=== PATIENT | male | born 1985 | race Caucasian/White ===

== ENCOUNTER 2022-02-02 15:49 | Emergency (ER) | payer MEDICAID, SELFPAY ==
--- NOTE | 2022-02-02 16:10 | EXP.UTC ---
Discharge Plan Disposition Patient Disposition: Home, Self-Care Condition: Good Prescriptions Prescriptions: New ciprofloxacin HCl [Cipro] 500 mg tablet 500 mg PO BID 10 Days Qty: 20 0RF mupirocin 2 % ointment 1 applic topical TID 7 Days Qty: 1 0RF cephalexin 500 mg capsule 500 mg PO QID Qty: 40 0RF Referrals Follow up/Referrals: Provider,Referral, MD [Primary Care Provider] - See instructions Victoria Hutton DPM [Staff Physician] - See instructions Activity Restrictions/Add. Instructions Additional Instructions/Restrictions: Rest the extremity, Elevate the extremity as tolerated while you are resting. Take ibuprofen for pain. I sent in a prescription to your pharmacy. Follow up with Dr. Hutton (podiatry). I put in a referral but you need to call her office and schedule an appointment. Follow up with your regular doctor. GO TO THE ER FOR ANY WORSENING SYMPTOMS Clinical Impressions Clinical Impression: Crush injury of right foot, Injury of right great toe, Diabetes Instructions Patient Instructions: DI for Crush Injury Discharge ED Provider: Good Pena [facility] General Stated complaint: AO 02/02 @[employer] ran over R foot Time Seen by Provider: 02/02/22 16:10 History of Present Illness Provider Complaint: He states that earlier today he was working on a fork lift at home when it rolled and rolled over the tip of his right great toe. He states that this caused his toe nail to be ripped off. He is a diabetic. Related Data Previous Rx's Medication Instructions Recorded cephalexin 500 mg capsule 500 mg PO QID #40 caps 02/02/22 ciprofloxacin HCl 500 mg tablet 500 mg PO BID 10 days #20 tabs 02/02/22 (Cipro) mupirocin 2 % topical ointment 1 applic topical TID 7 days #1 g 02/02/22 Allergies Allergy/AdvReac Type Severity Reaction Status Date / Time INGREDIENT: NO KNOWN - NO Allergy Unknown Uncoded 04/30/17 15:25 KNOWN DRUG ALLERGY [facility] Social History Smoking Status: Never smoker alcohol intake: never current occupational status: unemployed Travel in the last 8 weeks: None ROS Obtained: Yes All systems reviewed & no additional complaints except as documented Constitutional Constitutional: Reports system reviewed and no additional complaints, except as documented, Denies chills and Denies fever(s) Eyes Eyes: Denies eye discharge ENT Ears, Nose, Mouth, and Throat: Denies dysphagia, Denies sore throat and Denies throat swelling Cardiovascular Cardiovascular: Denies chest pain and Denies dyspnea Respiratory Respiratory: Denies chest congestion, Denies cough and Denies dyspnea Gastrointestinal Gastrointestingal: Denies abdominal pain, constipation, diarrhea, dysphagia, nausea or vomiting Musculoskeletal Musculoskeletal: Reports as per HPI Integumentary/Breasts Skin/Breast: Reports as per HPI Neurologic Neurologic: Denies paresthesias Allergic/Immunologic Allergic/Immunologic: Denies throat swelling Physical Exam General General appearance: alert and in no apparent distress Head Head exam: atraumatic, normocephalic and normal inspection Eye Eye exam: Present normal appearance, PERRL and EOMI ENT ENT exam: Present normal exam, normal oropharynx, mucous membranes moist, TM's normal bilaterally and normal external ear exam Neck Neck exam: Present normal inspection, full ROM and trachea midline; Absent meningismus or lymphadenopathy Chest Chest inspection: Present normal inspection and symmetric chest wall rise; Absent tenderness Respiratory Respiratory exam: Present normal lung sounds bilaterally; Absent respiratory distress Cardiovascular Cardiovascular exam: Present regular rate and normal rhythm; Absent JVD Abdominal Exam Abdominal exam: Present soft and normal bowel sounds; Absent distention, tenderness or guarding Extremities Exam Extremities exam: Present normal inspection, full ROM and norm
--- NOTE | 2022-02-02 16:14 | XR_ITS ---
PROCEDURE INFORMATION: Exam: XR Right Foot Exam date and time: 02/02/2022 4:16 PM Age: 36 years old Clinical indication: Injury or trauma; Other: Fork lift ran over foot; Work related; Blunt trauma; Right; Injury date: 02/02/22 TECHNIQUE: Imaging protocol: Radiologic exam of the Right foot. Views: 3 or more views. COMPARISON: No relevant prior studies available. FINDINGS: Bones/joints: Calcaneus enthesophytes. No acute fracture or dislocation. Soft tissues: Normal. IMPRESSION: No acute fracture or dislocation.
[2022-02-02 16:20] VITALS: BP 153/91; PULSE 90; RESP 18; TEMP 37; O2SAT 96; BMI 32.5
[2022-02-02 18:44] VITALS: BP 153/91; PULSE 90; RESP 18; TEMP 37
== END 2022-02-02 18:44 | disposition home or self-care (01) ==
PROVIDERS: Emergency Provider Nurse Practitioner Family
DX: S97.111A Crushing injury of right great toe, initial encounter (principal); S97.81XA Crushing injury of right foot, initial encounter; V83.7XXA Person on outside of special industrial vehicle injured in nontraffic accident, initial encounter; E11.9 Type 2 diabetes mellitus without complications
CPT/HCPCS: 73630; 99212; G0463

== ENCOUNTER 2023-12-04 21:36 | Emergency (ER) | payer MEDICAID, SELFPAY ==
[2023-12-04 21:38] VITALS: BP 144/74; PULSE 87; RESP 20; TEMP 36.6; O2SAT 100; BMI 27.3
--- NOTE | 2023-12-04 21:42 | ED_ITS ---
<Statement entered by Noris Sanches MD - 12/04/23 23:46> I was consulted by the SAHARA, and we discussed the complexity of problems being addressed. I approved the treatment and management plan for this patient's care in the emergency department, thus performing a substantial portion of the medical decision making. I evaluated the patient and reviewed labs. He does have significant prerenal changes but received aggressive IV fluid resuscitation in the ER. He has a mildly elevated CK, it is elevated but not consistent with rhabdomyolysis. His lactic was also elevated consistent with all the findings of dehydration as previously discussed. He continues to be stable and tolerated Dalvance well. Bactrim has been prescribed for outpatient management as well as follow-up with podiatry for his injuries on his feet given he is a diabetic which increases risk of worsening infection and injury. After evaluation and intervention in the ER, he is appropriate for discharge and was discharged in stable condition. Noris Sanches MD Discharge Plan Disposition Patient Disposition: Home, Self-Care Condition: Good Prescriptions Prescriptions: New sulfamethoxazole-trimethoprim [Bactrim DS] 800-160 mg tablet 1 tab PO DAILY 5 Days Qty: 5 0RF Discontinued cephalexin 500 mg capsule 500 mg PO QID Qty: 40 0RF No Action ciprofloxacin HCl [Cipro] 500 mg tablet 500 mg PO BID 10 Days Qty: 20 0RF mupirocin 2 % ointment 1 applic topical TID 7 Days Qty: 1 0RF Referrals Follow up/Referrals: Provider,Referral, [Primary Care Provider] - See instructions Victoria Hutton DPM [Staff Physician] - See instructions Activity Restrictions/Add. Instructions Additional Instructions/Restrictions: Take the prescribed antibiotics as directed, do not skip doses, do not stop taking them early. Please drink plenty of water in the next few days. Avoid all illicit substances including alcohol and drugs. I have referred you to podiatry to follow your diabetic foot injuries. Please follow-up with your PCP in 48 hours to recheck your labs. Return to ER for any worsening signs or symptoms as needed. Clinical Impressions Clinical Impression: Abrasion, multiple sites, Methamphetamine abuse, Hypokalemia, Acute prerenal azotemia Instructions Patient Instructions: DI for Skin Abscess Print Language Print Language: Gu[place]ian Discharge ED Provider: Noris Sanches General Adult HPI General Chief complaint: Skin/Abscess/Foreign Body Stated complaint: both feet hurt Time Seen by Provider: 12/04/23 21:42 History of Present Illness HPI narrative: Patient presents for evaluation initially of bilateral foot pain. However upon full interview the patient has spent the weekend high on meth nearly naked in [place] including barefoot. He does not recall much of what happened but recalls that his feet were extremely sore today. He denies chest pain fever chills hemoptysis hematochezia melena nausea vomiting diarrhea. He does have capacity for decision-making [place] Coma Score is currently 15 and he is awake alert and oriented to circumstance currently. I did ask the patient if he was here for rehabilitation and he said no Related Data Previous Rx's ?Medication ?Instructions ?Recorded ciprofloxacin HCl 500 mg tablet 500 mg PO BID 10 days #20 tabs 02/02/22 (Cipro) mupirocin 2 % topical ointment 1 applic topical TID 7 days #1 g 02/02/22 sulfamethoxazole 800 1 tab PO DAILY 5 days #5 tabs 12/04/23 mg-trimethoprim 160 mg tablet (Bactrim DS) Allergies Allergy/AdvReac Type Severity Reaction Status Date / Time INGREDIENT: NO KNOWN - NO Allergy Unknown Uncoded 04/30/17 15:25 KNOWN DRUG ALLERGY [facility] Disclaimer: The information contained in this section may have been updated after the patient was seen, as this information can be updated by other users. Social History (Updated 02/04/22 @ 21:40 by Good Pena APRN) Smoking Status: Current every day smoker alcohol intake: never current occupational status: unemployed Travel in the last 8 weeks: None ROS Obtained: Yes Systems reviewed as appropriate & no additional complaints except as documented Physical Exam General General appearance: alert and in no apparent distress Head Head exam: atraumatic and normal inspection Eye Eye exam: Present normal appearance and PERRL ENT ENT exam: Present normal exam, normal oropharynx and mucous membranes moist Neck Neck exam: Present normal inspection, full ROM and trachea midline Chest Chest inspection: Present normal inspection and symmetric chest wall rise Respiratory Respiratory exam: Present normal lung sounds bilaterally Cardiovascular Cardiovascular exam: Present regular rate and normal rhythm Abdominal Exam Abdominal exam: Present soft and normal bowel sounds; Absent tenderness, guarding or rebound Extremities Exam Extremities exam: Present normal inspection and full ROM Neurological Exam Neurological exam: Present alert, oriented X3 and CN II-XII intact Psychiatric Psychiatric exam: Present normal affect and normal mood Skin Skin exam: Present warm, dry and normal color; Absent intact (Patient has too numerous to count abrasions scratches and excoriations over his entire torso and extremities. He additionally has interdigital lacerations of his toes but no overt evidence of cellulitis currently) Medical Decision Making Medical Records Medical records reviewed: Yes I reviewed the patient's medical records. Josh Inquiry Pt receiving controlled substance: No Vital Signs: 12/04/23 21:38 12/04/23 22:00 12/04/23 22:30 Temperature 97.9 F Temperature Source Oral Pulse Rate 80 80 Pulse Rate [Right Brachial] 87 Respiratory Rate 20 15 19 Blood Pressure 112/63 103/55 L Blood Pressure [Right Arm] 144/74 H Blood Pressure Mean 79 71 Blood Pressure Mean [Right Arm] 97 Blood Pressure Source [Right Arm] Automatic Cuff Blood Pressure Position [Right Arm] Supine 02 Sat by Pulse Oximetry 100 98 99 Oxygen Delivery Method Room Air Room Air 12/04/23 23:00 12/04/23 23:30 Temperature Temperature Source Pulse Rate 78 78 Pulse Rate [Right Brachial] Respiratory Rate 20 19 Blood Pressure 110/64 105/63 L Blood Pressure [Right Arm] Blood Pressure Mean 78 76 Blood Pressure Mean [Right Arm] Blood Pressure Source [Right Arm] Blood Pressure Position [Right Arm] 02 Sat by Pulse Oximetry 99 98 Oxygen Delivery Method Room Air Room Air Lab Data Lab results reviewed: Yes I reviewed the patient's lab results. Lab Results 12/04/23 21:54: WBC 10.2, RBC 4.42 L, Hgb 14.7, Hct 41.5 L, MCV 93.9, MCH 33.1 H , MCHC 35.3, RDW 13.3, Plt Count 233, MPV 7.9, Neut % (Auto) 65.1, Lymph % (Auto) 21.7, [place] % (Auto) 7.5, Eos % (Auto) 4.8, Baso % (Auto) 1.0, Neut # (Auto) 6.7, Lymph # (Auto) 2.2, [place] # (Auto) 0.8, Eos # (Auto) 0.5 H, Baso # (Auto) 0.1, Sodium 140, Potassium 3.1 L, Chloride 102, Carbon Dioxide 31 H, Anion Gap 10.1, BUN 42 H, Creatinine 0.90, Estimated Creat Clear 144, Estimated GFR 94, Est GFR ( Amer) 114, Glucose 179 H, Calcium 9.5, Magnesium 2.2, Total Bilirubin 0.4, AST 98 H, ALT 93 H, Alkaline Phosphatase 114, Total Creatine Kinase 1492 H*, Total Protein 7.0, Albumin 4.1, Globulin 2.9, Albumin/Globulin Ratio 1.4 12/04/23 21:58: VBG pH 7.40, VBG pCO2 42.9, VBG pO2 53.7 H, VBG HCO3 26.2, VBG Total CO2 27.5 H, VBG O2 Saturation 87.2 H, VBG Base Excess 1.5, VBG Lactic Acid 3.2 H 12/04/23 22:36: Urine Color Yellow, Urine Appearance Clear, Urine pH 6.0, Ur Specific [place] 1.015, Urine Protein Negative, Urine Glucose (UA) 1+, Urine Ketones Negative, Urine Blood Negative, Urine Nitrate Negative, Urine Bilirubin Negative, Urine Urobilinogen 0.2, Ur Leukocyte Esterase Negative, Urine RBC None, Urine WBC Occasional, Ur Squamous Epith Cells 3-5, Urine Bacteria None, Hyaline Casts Occasional, Urine Opiates Screen Negative, Urine Methadone Screen Negative, Ur Barbituates Screen Negative, Ur Phencyclidine Scrn Negative, Ur Amphetamines Screen Positive H, U Benzodiazepines Scrn Negative, Urine Cocaine Screen Negative, U Marijuana (THC) Screen Positive H 12/04/23 21:54 12/04/23 21:54 Orders (Tests/Meds): ED MEDICATIONS Discontinued Medications Generic Name Dose Route Start Last Admin Trade Name Vicky PRN Reason Stop Dose Admin Acetaminophen 1,000 mg 12/04/23 21:49 12/04/23 22:00 Acetaminophen 1,000mg/100ml Vial IV 12/04/23 21:50 1,000 mg ONCE ONE Administration Cephalexin HCl 500 mg 12/04/23 22:09 12/04/23 22:20 Cephalexin 500mg Capsule PO 12/04/23 22:10 500 mg ONCE ONE Administration Diphenhydramine HCl 50 mg 12/04/23 21:49 12/04/23 22:00 Diphenhydramine 50mg/Ml Vial IV 12/04/23 21:50 50 mg ONCE ONE Administration Lactated Ringer's 1,000 mls @ 999 mls/hr 12/04/23 21:49 12/04/23 22:00 Lactated Ringer's 1000 Ml Bag IV 12/04/23 22:49 999 mls/hr .Q1H1M ONE Administration Dalbavancin 1,500 mg/ Dextrose 250 mls @ 500 mls/hr 12/04/23 22:18 12/04/23 22:21 IV 12/04/23 22:19 500 mls/hr ONCE ONE Administration Lactated Ringer's 1,000 mls @ 999 mls/hr 12/04/23 22:27 12/04/23 22:37 Lactated Ringer's 1000 Ml Bag IV 12/04/23 23:27 999 mls/hr .Q1H1M ONE Administration Ketorolac Tromethamine 15 mg 12/04/23 21:49 12/04/23 22:00 Ketorolac 30mg/Ml Vial IV 12/04/23 21:50 15 mg ONCE ONE Administration Potassium Chloride 60 meq 12/04/23 22:36 12/04/23 22:46 Potassium Chloride 20meq Tab PO 12/04/23 22:37 60 meq ONCE ONE Administration Trimethoprim/Sulfamethoxazole 1 each 12/04/23 22:09 12/04/23 23:39 Sulfa/Trimethoprim 1 Tablet PO 12/04/23 22:10 1 each ONCE ONE Administration ORDERS Category Date Time Status CBC w/Auto Diff [Complete Blood Count Auto Diff] Stat Lab 12/04/23 21:54 Completed CK [Creatine Kinase] Stat Lab 12/04/23 21:54 Completed CMP [Comprehensive Metabolic Panel] Stat Lab 12/04/23 21:54 Completed Magnesium Stat Lab 12/04/23 21:54 Completed UA [Urinalysis and Microscopic] Stat Lab 12/04/23 22:36 Completed UDS [Drug Screen,Urine] Stat Lab 12/04/23 22:36 Completed VBG [Venous Blood Gas] Stat RT 12/04/23 21:58 Completed Medical Decision Narrative: In summary patient is a 38-year-old male who presents to the emergency department for evaluation of numerous cutaneous injuries after spending the weekend intoxicated on methamphetamine in the [place] unclothed and barefoot. Patient is hemodynamically stable upon arrival, afebrile. Physical exam is remarkable for body wide abrasions excoriations but most significantly has numerous injuries to the foot that appear to be superficial but has interdigital cuts that are currently wet and dirty. He has no induration he has no lymphangitis he has no lymphedema.. Differential diagnosis includes superficial skin infection versus impending diabetic foot wounds versus contact dermatitis etc. Initial workup will be conducted with hematologic labs urinalysis urine drug screen. Initial interventions include Tylenol Toradol Keflex and Bactrim p.o. Initial workup reviewed by me shows that his white count is normal without a left shift, he has a lactic acidosis of 3.2 but a normal pH, he has azotemia but his creatinine is normal with a GFR greater than 60, he has CK but is experiencing no muscle symptoms and given his methamphetamine use not unlikely. We have treated him with 2 L of crystalloid infusion along with anti- inflammatories and Dalvance as well as Bactrim. Upon repeat evaluation had improvement in his discomfort in his feet. Given this is appropriate for discharge with follow-up with his PCP in 48 hours to recheck his labs and strict return precautions. Critical Care Critical Care Time Critical Care Time: No
--- OUTSIDE RECORDS SUMMARY | 2023-12-04 21:49 | XMS_ITS | Continuity of Care Document ---
Author Organization [facility] Phone Care Team Providers Care Laundry Washer Name Role Phone SHYAM TERRAZAS Primary Attending SHYAM TERRAZAS Unavailable SHYAM TERRAZAS Admitting NO, FAMILY P Primary Care ALLERGIES AND ADVERSE REACTIONS ALLERGIES AND ADVERSE REACTIONS Code System Allergy Substance Adverse Reaction Date Reaction (Severity) Comment Status Reported By Updated By No Known Allergies [id number] on November 15, 2023 6:00:33 PM UTC RESULTS Patient: VICENTA ALONSO Date of : 1985 LABORATORY RESULTS ORDER 200: ACETAMINOPHEN TYL ENOL (LOINC: 3298-7) ORDER DATE: November 15, 2023 6:02:00 PM UTC Specimen Source: Serum/Plasm a Specimen Type: Acellular blo od (serum or plasma) specimen PERFORMING LAB: [address] [id number] Result Comment: Final Result Date: November 15, 2023 6:17:00 PM UTC (TECH: HC) LOINC TEST FLAG RESULT REFERENCE RANGE UPDA BAKARI BY 3298-7 Acetaminophen [Mass/volume] in Serum or Plasma L 0 ug/mL 10 ug/mL - 30 ug/mL November 15, 2023 6:17:00 PM UTC (TECH: HC) ORDER 300: CBC AUTO W DIFF ( LOINC: 86315-0) ORDER DATE: November 15, 2023 6:02:00 PM UTC Specimen Source: Whole Blood Specimen Type: Whole blood s ample PERFORMING LAB: [address] [id number] Result Comment: Final Result Date: November 15, 2023 6:15:00 PM UTC (TECH: MRB) LOINC TEST FLAG RESULT REFERENCE RANGE UPDA BAKARI BY 6690-2 Leukocytes [#/volume] in Blood by Automated count N 6.7 10^3/uL 4.5 10^3/uL - 11.5 10^3/uL November 15, 2023 6:15:00 PM UTC (TECH: [employer]) 789-8 Erythrocytes [#/volume] in Blood by Automated count N 4.29 10^6/uL 4.25 10^6/uL - 5.57 10^6/uL November 15, 2023 6:15:00 PM UTC (TECH: [employer]) 718-7 Hemoglobin [Mass/volume] in Blood L 13.4 g/dL 13.5 g/dL - 17.2 g/dL November 15, 2023 6:15:00 PM UTC (TECH: MRB) 43877-2 Hematocrit [Volume Fraction] of Blood L 39.0 % 42.0 % - 52.0 % November 15, 2023 6:15:00 PM UTC (TECH: MRB) 787-2 Erythrocyte mean corpuscular volume [Entitic volume] by Automated count N 90.9 fl 80 fl - 95 fl November 15, 2023 6:15:00 PM UTC (TECH: [employer]) 70291-1 Erythrocyte mean corpuscular hemoglobin [Entitic mass] in Blood from [place] by Automated count N 31.2 pg 27.0 pg - 34.0 pg November 15, 2023 6:15:00 PM UTC (TECH: MRB) 83500-3 Erythrocyte mean corpuscular hemoglobin concentration [Mass/volume] in Blood from Fetus by Automated count N 34.4 g/dL 32.0 g/dL - 36.0 g/dL November 15, 2023 6:15:00 PM UTC (TECH: MRB) 86674-5 Platelets [#/volume] in Blood N 205 10^3/uL 150 10^3/uL - 450 10^3/uL November 15, 2023 6:15:00 PM UTC (TECH: MRB) 11471-5 Erythrocyte distribution width [Ratio] N 12.5 % 12.3 % - 15.1 % November 15, 2023 6:15:00 PM UTC (TECH: MRB) 02142-1 Platelet mean volume [Entitic volume] in Blood by Automated count N 9.9 fl 7.4 fl - 10.4 fl November 15, 2023 6:15:00 PM UTC (TECH: MRB) 41288-1 Granulocytes/100 leukocytes in Blood by Automated count N 57.7 % 40 % - 75 % November 15, 2023 6:15:00 PM UTC (TECH: MRB) 736-9 Lymphocytes/100 leukocytes in Blood by Automated count N 30.7 % 15 % - 57 % November 15, 2023 6:15:00 PM UTC (TECH: MRB) 5905-5 Monocytes/100 leukocytes in Blood by Automated count N 8.7 % 4.0 % - 12.0 % November 15, 2023 6:15:00 PM UTC (TECH: MRB) 713-8 Eosinophils/100 leukocytes in Blood by Automated count N 2.7 % 0.0 % - 4.0 % November 15, 2023 6:15:00 PM UTC (TECH: MRB) 706-2 Basophils/100 leukocytes in Blood by Automated count N 0.1 % 0.0 % - 1.0 % November 15, 2023 6:15:00 PM UTC (TECH: MRB) 11636-8 Immature granulocytes [#/volume] in Blood N 0.1 % 0.0 % - 0.8 % November 15, 2023 6:15:00 PM UTC (TECH: MRB) 54094-5 Granulocytes [#/volume] in Blood by Automated count N 3.86 10^3/uL November 15, 2023 6:15:00 PM UTC (TECH: MRB) 731-0 Lymphocytes [#/volume] in Blood by Automated count N 2.06 10^3/uL November 15, 2023 6:15:00 PM UTC (TECH: MRB) 742-7 Monocytes [#/volume] in Blood by Automated count N 0.58 10^3/uL November 15, 2023 6:15:00 PM UTC (TECH: MRB) 711-2 Eosinophils [#/volume] in Blood by Automated count N 0.18 10^3/uL November 15, 2023 6:15:00 PM UTC (TECH: MRB) 704-7 Basophils [#/volume] in Blood by Automated count N 0.01 10^3/uL November 15, 2023 6:15:00 PM UTC (TECH: MRB) 05737-9 Immature granulocytes [#/volume] in Blood N 0.01 10^3/uL November 15, 2023 6:15:00 PM UT (TECH: MRB) 21179-9 Manual differential performed [Presence] in Blood N NO November 15, 2023 6:15:00 PM UT (TECH: MRB) ORDER 400: COMP METABOLIC PA HOMERO (LOINC: 13673-6) ORDER DATE: November 15, 2023 6:02:00 PM UT Specimen Source: Serum/Plasm a Specimen Type: Acellular blo od (serum or plasma) specimen PERFORMING LAB: [address] [id number] Result Comment: Final Result Date: November 15, 2023 6:17:00 PM UT (TECH: HC) LOINC TEST FLAG RESULT REFERENCE RANGE UPDA BAKARI BY 2951-2 Sodium [Moles/volume ] in Serum or Plasma N 142 mmol/L 136 mmol/L - 145 mmol/L November 15, 2023 6:17:00 PM UT (TECH: HC) 2823-3 Potassium [Moles/volume] in Serum or Plasma N 3.6 mmol/L 3.5 mmol/L - 5.1 mmol/L November 15, 2023 6:17:00 PM UT (TECH: HC) 2075-0 Chloride [Moles/volu me] in Serum or Plasma N 105 mmol/L 98 mmol/L - 107 mmol/L November 15, 2023 6:17:00 PM UT (TECH: HC) 8-9 Carbon dioxide, tota l [Moles/volume] in Serum or Plasma N 31 mmol/L 21 mmol/L - 32 mmol/L November 15, 2023 6:17:00 PM [place] (TECH: HC) 24407-8 Anion gap 3 in Serum or Plasma N 6.0 November 15, 2023 6:17:00 PM UT (TECH: HC) 2345-7 Glucose [Mass/volume ] in Serum or Plasma H 319 mg/dL 70 mg/dL - 110 mg/dL November 15, 2023 6:17:00 PM UT (TECH: HC) 3094-0 Urea nitrogen [Mass/volume] in Serum or Plasma H 20 mg/dL 7 mg/dL - 18 mg/dL November 15, 2023 6:17:00 PM [place] ([employer]) 2160-0 Creatinine [Mass/volume] in Serum or Plasma N 1.1 mg/dL 0.8 mg/dL - 1.3 mg/dL November 15, 2023 6:17:00 PM [facility] ([employer]: [employer]) 3097-3 Urea nitrogen/Creatinine [Mass Ratio] in Serum or Plasma N 18.2 Ratio 9 Ratio - 21 Ratio November 15, 2023 6:17:00 PM [facility] ([employer]) 28537-4 Glomerular filtratio n rate/1.73 sq M.predicted by Creatinine-based formula (MDRD) N 88 mL/min >60 November 15, 2023 6:17:00 PM [facility] (TECH: [employer]) 2885-2 Protein [Mass/volume ] in Serum or Plasma N 6.9 g/dL 6.4 g/dL - 8.2 g/dL November 15, 2023 6:17:00 PM [facility] ([employer]) 1751-7 Albumin [Mass/volume ] in Serum or Plasma N 3.5 g/dL 3.4 g/dL - 5.0 g/dL November 15, 2023 6:17:00 PM [facility] ([employer]: [employer]) 66891-6 Calcium [Mass/volume ] in Serum or Plasma N 9.5 mg/dL 8.5 mg/dL - 10.1 mg/dL November 15, 2023 6:17:00 PM [facility] ([employer]) 54413-0 Calcium [Mass/volume ] corrected for total protein in Serum or Plasma N 9.9 mg/dL 8.5 mg/dL - 10.1 mg/dL November 15, 2023 6:17:00 PM [facility] ([employer]) 1975-2 Bilirubin.total [Mass/volume] in Serum or Plasma L 0.2 mg/dL 0.4 mg/dL - 1.5 mg/dL November 15, 2023 6:17:00 PM [facility] ([employer]: [employer]) 1920-8 Aspartate aminotransferase [Enzymatic activity/volume] in Serum or Plasma N 19 U/L 15 U/L - 37 U/L November 15, 2023 6:17:00 PM [facility] (TECH: [employer]) 1742-6 Alanine aminotransferase [Enzymatic activity/volume] in Serum or Plasma N 40 U/L 12 U/L - 78 U/L November 15, 2023 6:17:00 PM UTC (TECH: HC) 6768-6 Alkaline phosphatase [Enzymatic activity/volume] in Serum or Plasma N 144 U/L 50 U/L - 170 U/L November 15, 2023 6:17:00 PM UTC (TECH: HC) ORDER 500: ALCOHOL QUANT (LO INC: 5645-7) ORDER DATE: November 15, 2023 6:02:00 PM UTC Specimen Source: Serum/Plasm a Specimen Type: Acellular blo od (serum or plasma) specimen PERFORMING LAB: [address] [id number] Result Comment: Final Result Date: November 15, 2023 6:18:00 PM UTC (TECH: HC) LOINC TEST FLAG RESULT REFERENCE RANGE UPDA BAKARI BY 5645-7 Ethanol [Mass/volume] in Urine N <3 mg/dL 0 mg/dL - 10 mg/dL November 15, 2023 6:18:00 PM UTC (TECH: HC) ORDER 600: URINE DRUG SCREEN - EXL MAX (LOINC: 58069-8) ORDER DATE: November 15, 2023 6:02:00 PM UTC Specimen Source: URINE Specimen Type: Urine specime n PERFORMING LAB: [address] [id number] Result Comment: Final Result Date: November 15, 2023 6:29:00 PM UTC (TECH: MRB) LOINC TEST FLAG [place] [address]-0 Amphetamine+Methamph eta mine [Presence] in Urine POSITIVE NEGATIVE November 15, 2023 6:29:00 PM UTC (TECH: MRB) 3377-9 Barbiturates [Presen ce] in Urine N NEGATIVE NEGATIVE November 15, 2023 6:29:00 PM UTC (TECH: MRB) 07235-4 Benzodiazepine metabolites [Presence] in Urine by Screen method N NEGATIVE NEGATIVE November 15, 2023 6:29:00 PM UTC (TECH: MRB) 3414-0 Buprenorphine [Presence] in Urine N NEGATIVE NEGATIVE November 15, 2023 6:29:00 PM UTC (TECH: MRB) 3397-7 Cocaine [Presence] i n Urine N NEGATIVE NEGATIVE November 15, 2023 6:29:00 PM UTC (TECH: MRB) 79936-3 Methadone [Presence] in Specimen N NEGATIVE NEGATIVE November 15, 2023 6:29:00 PM UTC (TECH: MRB) 21844-2 Opiates [Mass/volume ] in Specimen N NEGATIVE NEGATIVE November 15, 2023 6:29:00 PM UTC (TECH: MRB) 26947-3 oxyCODONE [Presence] in Specimen N NEGATIVE NEGATIVE November 15, 2023 6:29:00 PM UTC (TECH: MRB) 3427-2 Cannabinoids [Presen ce] in Urine POSITIVE NEGATIVE November 15, 2023 6:29:00 PM UTC (TECH: MRB) 01414-1 Phencyclidine [Presence] in Specimen N NEGATIVE NEGATIVE November 14 6:29:00 PM UTC (TECH: MRB) 82043-2 Fentanyl [Presence] in Urine N NEGATIVE NEGATIVE November 15, 2023 6:29:00 PM UTC (TECH: MRB) 80106-3 Tricyclic antidepressants [Presence] in Specimen POSITIVE NEGATIVE November 14 6:29:00 PM UTC (TECH: MRB) 20679-4 Internal control result N PASS PASS November 15, 2023 6:29:00 PM UTC (TECH: MRB) ORDER 700: UA AND MICRO/CULT IF INDICATED (LOINC: 21387-5) ORDER DATE: November 15, 2023 6:02:00 PM UTC Specimen Source: URINE Specimen Type: Urine specime n PERFORMING LAB: [address] [id number] Result Comment: Final Result Date: November 15, 2023 6:23:00 PM UTC (TECH: MRB) LOINC TEST FLAG RESULT REFERENCE RANGE UPDA BAKARI BY 5778-6 Color of Urine N yellow YELLOW November 15, 2023 6:23:00 PM UTC (TECH: MRB) 5767-9 Appearance of Urine N clear CLEAR November 15, 2023 6:23:00 PM UTC (TECH: MRB) 5792-7 Glucose [Mass/volume ] in Urine by Test strip N 1000 NORMAL November 14 6:23:00 PM UTC (TECH: MRB) 13746-3 Bilirubin.total [Mass/volume] in Urine by Automated test strip N NEGATIVE NEGATIVE November 15, 2023 6:23:00 PM UTC (TECH: MRB) 5797-6 Ketones [Mass/volume ] in Urine by Test strip N NEGATIVE NEGATIVE November 14 024 6:23:00 PM UTC (TECH: MRB) 2965-2 Specific gravity of Urine N 1.015 1.005 - 1.035 November 15, 2023 6:23:00 PM UTC (TECH: MRB) 51735-7 Erythrocytes [#/volume] in Urine by Automated test strip N NEGATIVE NEGATIVE November 14 6:23:00 PM UTC (TECH: MRB) 84800-3 pH of Urine by Automated test strip N 6.50 5.0 - 7.5 November 14 6:23:00 PM UTC (TECH: MRB) 76207-8 Protein [Presence] i n Urine by Test strip N 15 (TRACE) mg/dL NEGATIVE November 14 6:23:00 PM UTC (TECH: MRB) 64452-8 Urobilinogen [Mass/volume] in Urine by Automated test strip N NORM NORMAL November 15, 2023 6:23:00 PM UTC (TECH: MRB) 46732-6 Nitrate [Presence] i n Urine N NEGATIVE NEGATIVE November 15, 2023 6:23:00 PM UTC (TECH: MRB) 96647-8 Leukocytes [#/volume ] in Urine by Test strip N NEGATIVE NEGATIVE November 14 6:23:00 PM UTC (TECH: MRB) 93331-5 Microscopic observation [Identifier] in Urine sediment by Light microscopy N NO November 15, 2023 6:23:00 PM UTC (TECH: MRB) LABORATORY NARRATIVE RESULTS Information is not available RADIOLOGY RESULTS Information is not available PATHOLOGY NARRATIVE RESULTS Information is not available MICROBIOLOGY RESULTS No Micro Labs/Results Exist for Patient BLOOD ADMIN RESULTS Information is not available MEDICATIONS HOME MEDICATIONS Status RXNORM NDC Medication Dose Route Frequency Dates Comments Reported By Updated By Active 382184 41775 95586 0 gabapentin 600 mg tablet 1.0 TAB BY MOUTH TID Last Dose: [id number] on November 15, 2023 6:00:49 PM [place] Active 578784 67472 28376 1 amitriptylin e 50 mg tablet 1.0 TAB BY MOUTH DAILY Last Dose: [id number] on November 15, 2023 6:00:49 PM [place] Active 620925 71235 46013 0 metformin 500 mg tablet 1.0 TAB BY MOUTH DAILY Last Dose: [id number] on November 15, 2023 6:00:50 PM [facility] Active 006839 88739 62037 1 metoprolol succinate 50 mg Tablet, Extended Release 24 hr 1.0 TAB BY MOUTH DAILY Last Dose: [id number] on November 15, 2023 6:00:50 PM [facility] Active 105432 40623 79801 5 rosuvastatin 5 mg tablet 1.0 TAB BY MOUTH DAILY Last Dose: [id number] on November 15, 2023 6:00:51 PM [place] Active 296658 83647 14895 0 amlodipine 10 mg tablet 1.0 TAB BY MOUTH DAILY Last Dose: [id number] on November 15, 2023 6:00:51 PM [facility] Active 551645 55543 38043 1 losartan-hyd rochlorothia zide 100-25 mg tablet 1.0 TAB BY MOUTH DAILY Last Dose: [id number] on November 15, 2023 6:00:51 PM [facility] Active 8288849 86330 56543 0 duloxetine 60 mg Capsule, Delayed Release Sprinkle 1.0 CAP BY MOUTH DAILY Last Dose: [id number] on November 15, 2023 6:00:52 PM [facility] Active 653570 49510 66031 0 glyburide 2.5 mg tablet 1.0 TAB BY MOUTH BID Last Dose: [id number] on November 15, 2023 6:00:52 PM [facility] Active 2282782 87786 49447 1 aspirin 81 mg capsule 1.0 CAP BY MOUTH DAILY Last Dose: [id number] on November 15, 2023 6:00:52 PM [facility] Active 023685 27793 82159 0 meloxicam 15 mg tablet 1.0 TAB BY MOUTH DAILY Last Dose: [id number] on November 15, 2023 6:00:52 PM [facility] DISCHARGE MEDICATIONS Status RXNORM NDC Medication Dose Route Frequency Dates Comments Physician Updated By No Discharge Medication Info rmation Available INPATIENT MEDICATIONS Status RXNORM ND Medication Dose Route Frequency Rat e Quantity Dates Comments Physician Updated By No Inpatient Medication Info rmation Available SOCIAL HISTORY SOCIAL HISTORY SNOMED-CT Social History Element Description Effective Dates Offered Cessation Comment UpdatedBy [id number] Smoking Status Unknown If Ever Smoked SOCIAL HISTORY - Gender Sex: Male SOCIAL HISTORY - Status : status i nformation is not available Intention in Next Year: intention information is not available SOCIAL HISTORY - Sexual Behavior Sexual Orientation Gender Identity SNOMED-CT Description SNO MED -CT Description Activity Level No of Partners Partner Type UpdatedBy Information is not available VITAL SIGNS PATIENT VITAL SIGNS This section displays the mo st recent value for each vital sign as of November 15, 2023 8:37:04 PM UTC Loinc Code Vital Sign Activity Date Result Updated By 8310-5 Body temperature November 15, 2023 5:19:00 PM UTC 98.1 [degF] [id number] on November 15, 2023 5:35:07 PM UTC 53021-5 Body weight Measured November 14 5:35:07 PM UTC 79.38 kg (175.0 lb) [id number] on November 15, 2023 5:35:07 PM UTC 8462-4 Diastolic blood pressure November 15, 2023 5:19:00 PM UTC 74.0 mm[Hg] [id number] on November 15, 2023 5:35:07 PM UTC 8867-4 Heart rate November 15, 2023 5:19:00 PM UTC 112 /min [id number] on November 15, 2023 5:35:07 PM UTC 90138-9 Oxygen saturation in Arterial blood by Pulse oximetry November 15, 2023 5:19:00 PM UTC 98.0 % [id number] on November 15, 2023 5:35:07 PM UTC 9279-1 Respiratory rate November 15, 2023 5:19:00 PM UTC 18 /min [id number] on November 15, 2023 5:35:07 PM UTC 8480-6 Systolic blood pressure November 15, 2023 5:19:00 PM UTC 131.0 mm[Hg] [id number] on November 15, 2023 5:35:07 PM UTC PEDIATRIC GROWTH CHART - VITAL SIGNS This section displays Head C ircumference Percentile, Weight for Length Percentile and BMI Percentile Loinc Code Pediatric Measure Age (Months) Result Updat ed By No Pediatric Growth Chart Pe rcentile Information Available. HEALTH CONCERNS Problems Concern Status Health Concern problem infor mation not available. Smoking Status Status Years Used Consumed packs p er day Health Concern smoking histo ry information not available. Family History Concern Status Health Concern family histor y information not available. ENCOUNTERS ENCOUNTER INFORMATION Reason for Visit PSYCH PROBLEM Admission November 15, 2023 5:16:[address] [id number] Discharge November 15, 2023 7:37:00 PM [facility] DISC HARGED TO HOME OR SELF CARE ENCOUNTER DIAGNOSES Notes information is not karrie ilable. Code System Diagnosis Onset Date Diagnosis information is not available. ABSTRACT DIAGNOSES Code System Diagnosis Updated By Abstract Diagnosis informati on is not available. CARE TEAM Care Laundry Washer Role SHYAM TERRAZAS Primary Attending SHYAM TERRAZAS Referring SHYAM TERRAZAS Admitting FAMILY NO Primary Care CARE TEAM CARE nutrition director Role on Team Status Start Date End Date Update d By MK OROZCO Referring normal November 15, 2023 6:38:08 PM [facility] November 15, 2023 7:37:00 PM [facility] [id number] on November 15, 2023 6:38:08 PM [facility] MK OROZCO Attending normal November 15, 2023 6:38:08 PM [facility] November 15, 2023 7:37:00 PM [facility] [id number] on November 15, 2023 6:38:08 PM [facility] MK OROZCO Admitting normal November 15, 2023 6:38:07 PM [place] November 15, 2023 7:37:00 PM [facility] [id number] on November 15, 2023 6:38:08 PM [facility] NO FAMILY PHYSICIAN PCP normal November 15, 2023 5:16:51 PM [place] November 15, 2023 7:37:00 PM [facility] [id number] on November 15, 2023 6:38:08 PM [facility]
--- OUTSIDE RECORDS SUMMARY | 2023-12-04 21:49 | XMS_ITS | Continuity of Care Document ---
Author Organization [facility] Phone Care Team Providers Care Apprenticeship Consultant Name Role Phone SHYAM TERRAZAS Primary Attending SHYAM TERRAZAS Unavailable SHYAM TERRAZAS Admitting NO, FAMILY P Primary Care ALLERGIES AND ADVERSE REACTIONS ALLERGIES AND ADVERSE REACTIONS Code System Allergy Substance Adverse Reaction Date Reaction (Severity) Comment Status Reported By Updated By No Known Allergies [email or web address] on November 15, 2023 6:00:33 PM UTC RESULTS Patient: VICENTA ALONSO Date of : 1985 LABORATORY RESULTS ORDER 200: ACETAMINOPHEN TYL ENOL (LOINC: 3298-7) ORDER DATE: November 15, 2023 6:02:00 PM UTC Specimen Source: Serum/Plasm a Specimen Type: Acellular blo od (serum or plasma) specimen PERFORMING LAB: [address] [id number] Result Comment: Final Result Date: November 15, 2023 6:17:00 PM UTC (TECH: HC) LOINC TEST FLAG RESULT REFERENCE RANGE UPDA BAKARI BY 3298-7 Acetaminophen [Mass/volume] in Serum or Plasma L 0 ug/mL 10 ug/mL - 30 ug/mL November 15, 2023 6:17:00 PM UTC (TECH: HC) ORDER 300: CBC AUTO W DIFF ( LOINC: 71844-0) ORDER DATE: November 15, 2023 6:02:00 PM UTC Specimen Source: Whole Blood Specimen Type: Whole blood s ample PERFORMING LAB: [address] [id number] Result Comment: Final Result Date: November 15, 2023 6:15:00 PM UTC (TECH: MRB) LOINC TEST FLAG RESULT REFERENCE RANGE UPDA BAKARI BY 6690-2 Leukocytes [#/volume] in Blood by Automated count N 6.7 10^3/uL 4.5 10^3/uL - 11.5 10^3/uL November 15, 2023 6:15:00 PM UTC (TECH: [employer]) 789-8 Erythrocytes [#/volume] in Blood by Automated count N 4.29 10^6/uL 4.25 10^6/uL - 5.57 10^6/uL November 15, 2023 6:15:00 PM UTC (TECH: [employer]) 718-7 Hemoglobin [Mass/volume] in Blood L 13.4 g/dL 13.5 g/dL - 17.2 g/dL November 15, 2023 6:15:00 PM UTC (TECH: MRB) 52912-9 Hematocrit [Volume Fraction] of Blood L 39.0 % 42.0 % - 52.0 % November 15, 2023 6:15:00 PM UTC (TECH: MRB) 787-2 Erythrocyte mean corpuscular volume [Entitic volume] by Automated count N 90.9 fl 80 fl - 95 fl November 15, 2023 6:15:00 PM UTC (TECH: [employer]) 75628-1 Erythrocyte mean corpuscular hemoglobin [Entitic mass] in Blood from Fetus by Automated count N 31.2 pg 27.0 pg - 34.0 pg November 15, 2023 6:15:00 PM UTC (TECH: MRB) 61385-7 Erythrocyte mean corpuscular hemoglobin concentration [Mass/volume] in Blood from Fetus by Automated count N 34.4 g/dL 32.0 g/dL - 36.0 g/dL November 15, 2023 6:15:00 PM UTC (TECH: MRB) 72335-2 Platelets [#/volume] in Blood N 205 10^3/uL 150 10^3/uL - 450 10^3/uL November 15, 2023 6:15:00 PM UTC (TECH: MRB) 12170-6 Erythrocyte distribution width [Ratio] N 12.5 % 12.3 % - 15.1 % November 15, 2023 6:15:00 PM UTC (TECH: MRB) 84228-4 Platelet mean volume [Entitic volume] in Blood by Automated count N 9.9 fl 7.4 fl - 10.4 fl November 15, 2023 6:15:00 PM UTC (TECH: MRB) 62312-8 Granulocytes/100 leukocytes in Blood by Automated count [...] 15, 2023 6:15:00 PM UTC (TECH: MRB) 65014-0 Immature granulocytes [#/volume] in Blood N 0.1 % 0.0 % - 0.8 % November 15, 2023 6:15:00 PM UTC (TECH: MRB) 61846-7 Granulocytes [#/volume] in Blood by Automated count [...] 15, 2023 6:15:00 PM UTC (TECH: MRB) 84343-7 Immature granulocytes [#/volume] in Blood N 0.01 10^3/uL November 15, 2023 6:15:00 PM [place] (TECH: MRB) 46429-6 Manual differential performed [Presence] in Blood N NO November 15, 2023 6:15:00 PM UT (TECH: MRB) ORDER 400: COMP METABOLIC PA HOMERO (LOINC: 33393-5) ORDER DATE: November 15, 2023 6:02:00 PM UT Specimen Source: Serum/Plasm a Specimen Type: Acellular blo od (serum or plasma) specimen PERFORMING LAB: [address] [id number] Result Comment: Final Result Date: November 15, [...] 15, 2023 6:17:00 PM UT (TECH: HC) 38414-1 Anion gap 3 in Serum or Plasma N 6.0 November 15, 2023 6:17:00 PM UT (TECH: HC) 2345-7 Glucose [Mass/volume ] in Serum or Plasma H 319 mg/dL 70 mg/dL - 110 mg/dL November 15, 2023 6:17:00 PM UT (TECH: HC) 3094-0 Urea nitrogen [Mass/volume] in Serum or Plasma H 20 mg/dL 7 mg/dL - 18 mg/dL November 15, 2023 6:17:00 PM [place] ([employer]) 2160-0 Creatinine [Mass/volume] in Serum or Plasma N 1.1 mg/dL 0.8 mg/dL - 1.3 mg/dL November 15, 2023 6:17:00 PM [facility] ([email or web address]: [employer]) 3097-3 Urea nitrogen/Creatinine [Mass Ratio] in Serum or Plasma N 18.2 Ratio 9 Ratio - 21 Ratio November 15, 2023 6:17:00 PM [facility] ([employer]) 56067-3 Glomerular filtratio n rate/1.73 sq M.predicted by Creatinine-based formula (MDRD) N 88 mL/min >60 November 15, 2023 6:17:00 PM [facility] (TECH: [employer]) 2885-2 Protein [Mass/volume ] in Serum or Plasma N 6.9 g/dL 6.4 g/dL - 8.2 g/dL November 15, 2023 6:17:00 PM [facility] ([employer]) 1751-7 Albumin [Mass/volume ] in Serum or Plasma N 3.5 g/dL 3.4 g/dL - 5.0 g/dL November 15, 2023 6:17:00 PM [facility] ([email or web address]: [employer]) 03605-3 Calcium [Mass/volume ] in Serum or Plasma N 9.5 mg/dL 8.5 mg/dL - 10.1 mg/dL November 15, 2023 6:17:00 PM [facility] ([employer]) 02390-3 Calcium [Mass/volume ] corrected for total protein in Serum or Plasma N 9.9 mg/dL 8.5 mg/dL - 10.1 mg/dL November 15, 2023 6:17:00 PM [facility] ([employer]) 1975-2 Bilirubin.total [Mass/volume] in Serum or Plasma L 0.2 mg/dL 0.4 mg/dL - 1.5 mg/dL November 15, 2023 6:17:00 PM [facility] ([email or web address]: [employer]) 1920-8 Aspartate aminotransferase [Enzymatic activity/volume] in Serum or Plasma N 19 U/L 15 U/L - 37 U/L November 15, 2023 6:17:00 PM [facility] (TECH: [employer]) 1742-6 Alanine aminotransferase [Enzymatic activity/volume] in Serum [...] od (serum or plasma) specimen PERFORMING LAB: [address] [id number] Result Comment: Final Result Date: November 15, 2023 6:18:00 PM UTC (TECH: HC) LOINC TEST FLAG RESULT REFERENCE RANGE UPDA BAKARI BY 5645-7 Ethanol [Mass/volume] in Urine N <3 mg/dL 0 mg/dL - 10 mg/dL November 15, 2023 6:18:00 PM UTC (TECH: HC) ORDER 600: URINE DRUG SCREEN - EXL MAX (LOINC: 30965-2) ORDER DATE: November 15, 2023 6:02:00 PM UTC Specimen Source: URINE Specimen Type: Urine specime n PERFORMING LAB: [address] [id number] Result Comment: Final Result Date: November 15, 2023 6:29:00 PM UTC (TECH: MRB) LOINC TEST FLAG [place] [address]-2 Amphetamine+Methamph eta mine [Presence] in Urine POSITIVE NEGATIVE November 15, 2023 6:29:00 PM UTC (TECH: MRB) 3377-9 Barbiturates [Presen ce] in Urine N NEGATIVE NEGATIVE November 15, 2023 6:29:00 PM UTC (TECH: MRB) 96589-7 Benzodiazepine metabolites [Presence] in Urine by Screen method N NEGATIVE NEGATIVE November 15, 2023 6:29:00 PM UTC (TECH: MRB) 3414-0 Buprenorphine [Presence] in Urine N NEGATIVE NEGATIVE November 15, 2023 6:29:00 PM UTC (TECH: MRB) 3397-7 Cocaine [Presence] i n Urine N NEGATIVE NEGATIVE November 15, 2023 6:29:00 PM UTC (TECH: MRB) 78123-8 Methadone [Presence] in Specimen N NEGATIVE NEGATIVE November 15, 2023 6:29:00 PM UTC (TECH: MRB) 59203-1 Opiates [Mass/volume ] in Specimen N NEGATIVE NEGATIVE November 15, 2023 6:29:00 PM UTC (TECH: MRB) 27351-4 oxyCODONE [Presence] in Specimen N NEGATIVE NEGATIVE November 15, 2023 6:29:00 PM UTC (TECH: MRB) 3427-2 Cannabinoids [Presen ce] in Urine POSITIVE NEGATIVE November 15, 2023 6:29:00 PM UTC (TECH: MRB) 12610-9 Phencyclidine [Presence] in Specimen N NEGATIVE NEGATIVE November 14 6:29:00 PM UTC (TECH: MRB) 65070-0 Fentanyl [Presence] in Urine N NEGATIVE NEGATIVE November 15, 2023 6:29:00 PM UTC (TECH: MRB) 47046-2 Tricyclic antidepressants [Presence] in Specimen POSITIVE NEGATIVE November 14 6:29:00 PM UTC (TECH: MRB) 39689-4 Internal control result N PASS PASS November 15, 2023 6:29:00 PM UTC (TECH: MRB) ORDER 700: UA AND MICRO/CULT IF INDICATED (LOINC: 91400-9) ORDER DATE: November 15, 2023 6:02:00 PM UTC Specimen Source: URINE Specimen Type: Urine specime n PERFORMING LAB: [address] [id number] Result Comment: Final Result Date: November 15, [...] November 14 6:23:00 PM UTC (TECH: MRB) 14990-9 Bilirubin.total [Mass/volume] in Urine by Automated test strip N NEGATIVE NEGATIVE November 15, 2023 6:23:00 PM UTC (TECH: MRB) 5797-6 Ketones [Mass/volume ] in Urine by Test strip N NEGATIVE NEGATIVE November 14 024 6:23:00 PM UTC (TECH: MRB) 2965-2 Specific gravity of Urine N 1.015 1.005 - 1.035 November 15, 2023 6:23:00 PM UTC (TECH: MRB) 04925-1 Erythrocytes [#/volume] in Urine by Automated test strip N NEGATIVE NEGATIVE November 14 6:23:00 PM UTC (TECH: MRB) 04550-8 pH of Urine by Automated test strip N 6.50 5.0 - 7.5 November 14 6:23:00 PM UTC (TECH: MRB) 38959-5 Protein [Presence] i n Urine by Test strip N 15 (TRACE) mg/dL NEGATIVE November 14 6:23:00 PM UTC (TECH: MRB) 88494-2 Urobilinogen [Mass/volume] in Urine by Automated test strip N NORM NORMAL November 15, 2023 6:23:00 PM UTC (TECH: MRB) 43657-1 Nitrate [Presence] i n Urine N NEGATIVE NEGATIVE November 15, 2023 6:23:00 PM UTC (TECH: MRB) 71371-0 Leukocytes [#/volume ] in Urine by Test strip N NEGATIVE NEGATIVE November 14 6:23:00 PM UTC (TECH: MRB) 98775-3 Microscopic observation [Identifier] in Urine sediment by [...] Dates Comments Reported By Updated By Active 279656 65662 34922 0 gabapentin 600 mg tablet 1.0 TAB BY MOUTH TID Last Dose: [id number] on November 15, 2023 6:00:49 PM [place] Active 924681 74146 45304 1 amitriptylin e 50 mg tablet 1.0 TAB BY MOUTH DAILY Last Dose: [id number] on November 15, 2023 6:00:49 PM UT Active 605473 63698 36689 0 metformin 500 mg tablet 1.0 TAB BY MOUTH DAILY Last Dose: [id number] on November 15, 2023 6:00:50 PM [facility] Active 002097 76600 73181 1 metoprolol succinate 50 mg Tablet, Extended Release 24 hr 1.0 TAB BY MOUTH DAILY Last Dose: [id number] on November 15, 2023 6:00:50 PM [facility] Active 767369 18280 57465 5 rosuvastatin 5 mg tablet 1.0 TAB BY MOUTH DAILY Last Dose: [id number] on November 15, 2023 6:00:51 PM [place] Active 500175 35950 33468 0 amlodipine 10 mg tablet 1.0 TAB BY MOUTH DAILY Last Dose: [id number] on November 15, 2023 6:00:51 PM [facility] Active 294171 60219 34442 1 losartan-hyd rochlorothia zide 100-25 mg tablet 1.0 TAB BY MOUTH DAILY Last Dose: [id number] on November 15, 2023 6:00:51 PM [facility] Active 9602272 25184 85347 0 duloxetine 60 mg Capsule, Delayed Release Sprinkle 1.0 CAP BY MOUTH DAILY Last Dose: [id number] on November 15, 2023 6:00:52 PM [facility] Active 976262 22979 22294 0 glyburide 2.5 mg tablet 1.0 TAB BY MOUTH BID Last Dose: [id number] on November 15, 2023 6:00:52 PM [facility] Active 3712191 66650 84187 1 aspirin 81 mg capsule 1.0 CAP BY MOUTH DAILY Last Dose: [id number] on November 15, 2023 6:00:52 PM [facility] Active 055161 56382 95048 0 meloxicam 15 mg tablet 1.0 TAB BY MOUTH DAILY Last Dose: [id number] on November 15, 2023 6:00:52 PM [facility] [...] Description Effective Dates Offered Cessation Comment UpdatedBy [id number] Smoking Status Unknown If Ever Smoked SOCIAL [...] for each vital sign as of November 20, 2023 12:41:49 PM UTC Loinc Code Vital Sign Activity Date Result Updated By 8310-5 Body temperature November 15, 2023 5:19:00 PM UTC 98.1 [degF] [id number] on November 15, 2023 5:35:07 PM UTC 40615-7 Body weight Measured November 14 5:35:07 PM UTC 79.38 kg (175.0 lb) [id number] on November 15, 2023 5:35:07 PM UTC 8462-4 Diastolic blood pressure November 15, 2023 5:19:00 PM UTC 74.0 mm[Hg] [id number] on November 15, 2023 5:35:07 PM UTC 8867-4 Heart rate November 15, 2023 5:19:00 PM UTC 112 /min [id number] on November 15, 2023 5:35:07 PM UTC 46311-5 Oxygen saturation in Arterial blood by Pulse oximetry November 15, 2023 5:19:00 PM UTC 98.0 % [id number] on November 15, 2023 5:35:07 PM UTC 9279-1 Respiratory rate November 15, 2023 5:19:00 PM UTC 18 /min [id number] on November 15, 2023 5:35:07 PM UTC 8480-6 Systolic blood pressure November 15, 2023 5:19:00 PM UTC 131.0 mm[Hg] [id number] on November 15, 2023 5:35:07 PM UTC [...] PROBLEM Admission November 15, 2023 5:16:[address] [id number] Discharge November 15, 2023 7:37:00 PM [place] DISC HARGED TO HOME OR SELF CARE ENCOUNTER DIAGNOSES Notes information is not karrie ilable. Code System Diagnosis Onset Date Diagnosis information is not available. 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, UNCOM PLICATED [id number] on November 20, 2023 12:40:52 PM UT E11.9 ICD10 TYPE 2 DIABETES MELLITUS WITHOUT COMPLICATIONS [id number] on November 20, 2023 12:40:52 PM [place] I10 ICD10 ESSENTIAL (PRIMARY) HYPERTEN RAJNI [id number] on November 20, 2023 12:40:52 PM UT Z79.82 ICD10 [facility] (CURRENT) USE OF A SPIRIN [id number] on November 20, 2023 12:40:52 PM UT Z79.84 ICD10 ROOM ATTENDANT (CURRE NT) USE OF ORAL HYPOGLYCEMIC DRUGS [id number] on November 20, 2023 12:40:52 PM UT Z79.899 ICD10 OTHER [facility] (CURRENT) DR RUBIO THERAPY [id number] on November 20, 2023 12:40:52 PM [place] CARE TEAM Care Apprenticeship Consultant Role SHYAM TERRAZAS Primary Attending SHYAM TERRAZAS Referring SHYAM TERRAZAS Admitting FAMILY NO Primary Care CARE TEAM CARE lead generation marketing manager Role on Team Status Start Date End Date Update d By MK OROZCO Referring normal November 15, 2023 6:38:08 PM [place] November 15, 2023 7:37:00 PM [facility] [id number] on November 15, 2023 6:38:08 PM [facility] MK OROZCO Attending normal November 15, 2023 6:38:08 PM [place] November 15, 2023 7:37:00 PM [facility] [id number] on November 15, 2023 6:38:08 PM [facility] MK OROZCO Admitting normal November 15, 2023 6:38:07 PM [facility] November 15, 2023 7:37:00 PM [facility] [id number] on November 15, 2023 6:38:08 PM [facility] NO FAMILY PHYSICIAN PCP normal November 15, 2023 5:16:51 PM [facility] November 15, 2023 7:37:00 PM [facility] [id number] on November 15, 2023 6:38:08 PM [facility]
[2023-12-04 22:00] VITALS: BP 112/63; PULSE 80; RESP 15; O2SAT 98
[2023-12-04] MEDS: ACETAMINOPHEN 1,000MG/100ML VIAL 1000 MG IV (22:00)
[2023-12-04] MEDS: LACTATED RINGERS 1000ML 1,000 ML 999 ML IV ×2 (22:00→22:37)
[2023-12-04] MEDS: KETOROLAC 30MG/ML VIAL 15 MG IV (22:00)
[2023-12-04] MEDS: diphenhydrAMINE 50MG/ML VIAL 50 MG IV (22:00)
[2023-12-04 22:03] LABS: Basophils # 0.1 K/mm3 (0-0.2); Eosinophils # 0.5 K/mm3 (0.0-0.4); Eosinophils % 4.8 % (0.1-12.0); Hematocrit 41.5 % (42.0-52.0); Hemoglobin 14.7 g/dL (14.1-18.0); Lymphocytes # 2.2 K/mm3 (0.7-4.5); Lymphocytes % 21.7 % (10-50); Mean Corpuscular HGB Conc 35.3 g/dL (31.8-35.4); Mean Corpuscular Hemoglobin 33.1 pg (27.0-31.2); Mean Corpuscular Volume 93.9 fl (80-94); Mean Platelet Volume 7.9 fl (7.4-10.4); Monocytes # 0.8 K/mm3 (0.1-1.0); Monocytes % 7.5 % (1.7-9.3); Neutrophils # 6.7 K/mm3 (1.8-7.8); Neutrophils % 65.1 % (37.0-80.0); Platelet Count 233 K/mm3 (142-424); Red Blood Count 4.42 M/mm3 (4.60-6.20); Red Cell Distribution Width 13.3 % (11.5-17.5); White Blood Count 10.2 K/mm3 (4.8-10.8)
[2023-12-04 22:05] LABS: VBG Base Excess 1.5 mmol/L (-2.4-2.3); VBG HCO3 26.2 mmol/L (23-30); VBG Oxygen Saturation 87.2 % (50-70); VBG PCO2 42.9 mmol/L (35-51); VBG PO2 53.7 mmol/L (28-40); VBG Total CO2 27.5 mmol/L (23-27)
[2023-12-04 22:06] LABS: Lactate Venous 3.2 mmol/L (0.4-2.0)
[2023-12-04 22:11] LABS: Chloride 102 mmol/L (98-107); Potassium 3.1 mmoL/L (3.5-5.1); Sodium 140 mmol/L (136-145)
[2023-12-04 22:13] LABS: Alanine Aminotransferase 93 U/L (12-78); Alkaline Phosphatase 114 U/L (38-126); Anion Gap 10.1 mEq/L (5-15); Aspartate Amino Transferase 98 U/L (17-59); Bilirubin,Total 0.4 mg/dl (0.2-1.3); Blood Urea Nitrogen 42 mg/dl (9-20); Carbon Dioxide 31 mmol/L (22.0-30.0); Creatinine Clearance Estimated 144 mL/min (50-200); Estimated Glomerular Filt Rate 94 ml/min (>60); GFR (African American) 114 ML/MIN (>60)
[2023-12-04 22:14] LABS: Albumin Level 4.1 g/dl (3.5-5.0); Albumin/Globulin Ratio 1.4 (1.1-1.8); Calcium 9.5 mg/dl (8.4-10.2); Creatine Kinase 1492 U/L (55-170); Globulin 2.9 g/dL (1.3-3.2); Glucose 179 mg/dl (74-100); Magnesium 2.2 mg/dl (1.6-2.3)
[2023-12-04] MEDS: cephALEXin 500MG CAPSULE 500 MG PO (22:20)
[2023-12-04] MEDS: DALBAVANCIN HCL 1,500 MG in DEXTROSE 5 % IN WATER 250 ML 500 MG IV (22:21)
[2023-12-04 22:30] VITALS: BP 103/55; PULSE 80; RESP 19; O2SAT 99
[2023-12-04 22:41] LABS: Microscopic, Urine URINE MICROSCOPIC (MICROSCOPIC)
[2023-12-04 22:44] LABS: Appearance,Urine CLEAR (Clear); Bilirubin,Urine Negative (Negative); Blood, Urine Negative (Negative); Color,Urine YELLOW (Yellow); Glucose,Urine (UA) 1+ (Negative); Ketones,Urine Negative (Negative); Leukocyte Esterase,Urine Negative (Negative); Nitrate,Urine Negative (Negative); Protein,Urine Negative (Negative); Specific Gravity, Urine 1.015 (1.005-1.030); Urobilinogen,Urine 0.2 EU/dl (0.2)
[2023-12-04] MEDS: POTASSIUM CHLORIDE 20MEQ TAB 60 MEQ PO (22:46)
[2023-12-04 22:52] LABS: WBC,Urine Occasional #/hpf (0-3)
[2023-12-04 22:53] LABS: Hyaline Casts,Urine Occasional #/lpf (0)
[2023-12-04 23:00] VITALS: BP 110/64; PULSE 78; RESP 20; O2SAT 99
[2023-12-04 23:06] LABS: Amphetamine/Metha Screen,Urine Positive ng/ml (<1000); Barbiturates Screen,Urine Negative ng/ml (<200)
[2023-12-04 23:07] LABS: Benzodiazepines Screen,Urine Negative ng/ml (<200)
[2023-12-04 23:08] LABS: Cannabinoid Screen,Urine Positive ng/ml (<50); Cocaine Screen,Urine Negative ng/ml (<300)
[2023-12-04 23:09] LABS: Methadone Screen,Urine Negative ng/ml (<300)
[2023-12-04 23:10] LABS: Opiate Screen,Urine Negative ng/ml (<300); Phencyclidine Screen,Urine Negative ng/ml (<25)
[2023-12-04 23:30] VITALS: BP 105/63; PULSE 78; RESP 19; O2SAT 98
[2023-12-04] MEDS: SULFA/TRIMETHOPRIM 1 TABLET 1 EACH PO (23:39)
[2023-12-04 23:47] VITALS: BP 105/63; PULSE 81; RESP 21; TEMP 36.6; O2SAT 98
== END 2023-12-04 23:50 | disposition home or self-care (01) ==
PROVIDERS: Physician Assistant; Emergency Provider Emergency Medicine
DX: E86.0 Dehydration (principal); E87.6 Hypokalemia; N17.8 Other acute kidney failure; F15.10 Other stimulant abuse, uncomplicated; S30.811A Abrasion of abdominal wall, initial encounter; S20.419A Abrasion of unspecified back wall of thorax, initial encounter; S90.811A Abrasion, right foot, initial encounter; S90.812A Abrasion, left foot, initial encounter; M79.671 Pain in right foot; M79.672 Pain in left foot; W26.8XXA Contact with other sharp object(s), not elsewhere classified, initial encounter; F17.210 Nicotine dependence, cigarettes, uncomplicated
CPT/HCPCS: 80053; 80307; 81001; 82550; 82803; 83735; 85025; 96361; 96374; 96375; 99284; J0131; J0875; J1200; J1885; J7060; J7120

== ENCOUNTER 2024-03-01 21:54 | Emergency (ER) | payer MEDICAID, SELFPAY ==
--- NOTE | 2024-03-01 22:03 | ECG_ITS ---
APPROVED REPORT Exam: Resting ECG HR:105 bpm ECG Measurements Heart Rate 105 AXES WV 129 P 62 QRSd 88 QRS 75 QT 323 T 37 QTc 384 Conclusion SINUS TACHYCARDIA ABNORMAL RHYTHM ECG UNCONFIRMED REPORT Electronically signed by : ANNA JOHNSON, 03/02/2024 06:52:44
[2024-03-01 22:05] VITALS: BP 124/84; PULSE 120; RESP 11; TEMP 36.8; O2SAT 99; BMI 27.5
[2024-03-01 22:09] VITALS: BP 124/84; PULSE 120; RESP 11; TEMP 36.8; O2SAT 99
--- NOTE | 2024-03-01 22:25 | CT_ITS ---
PROCEDURE INFORMATION: Exam: CTA Chest With Contrast Exam date and time: 03/01/2024 10:51 PM Age: 38 years old Clinical indication: Other: Tachycardia, history of endocarditis TECHNIQUE: Imaging protocol: Computed tomographic angiography of the chest with contrast. Exam focused on the arteries. 3D rendering (Not supervised by radiologist): MIP and/or 3D reconstructed images were created by the technologist. Radiation optimization: All CT scans at this facility use at least one of these dose optimization techniques: automated exposure control; mA and/or kV adjustment per patient size (includes targeted exams where dose is matched to clinical indication); or iterative reconstruction. Contrast material: ISOUVE 370; Contrast volume: 70 ml; Contrast route: INTRAVENOUS (IV); COMPARISON: No relevant prior studies available. FINDINGS: Pulmonary arteries: There is no evidence for clinically relevant pulmonary arterial filling defect. Tiny distal filling defects may be present but are of dubious clinical significance. Aorta: The aorta is normal caliber without focal abnormality. No dissection or aneurysm. Lungs: There are scattered calcified granulomas in the lungs which most likely reflect prior granulomatous disease. Pleural spaces: Unremarkable. No pneumothorax. No pleural effusion. Heart: Unremarkable. No cardiomegaly. No pericardial effusion. Lymph nodes: There are mildly prominent mediastinal lymph nodes which are nonenlarged. Bones/joints: Unremarkable. No acute fracture. Soft tissues: There is bilateral gynecomastia. IMPRESSION: 1. No dense parenchymal consolidation, pleural effusion, or pneumothorax. 2. The aorta is normal caliber without focal abnormality. No dissection or aneurysm. 3. No evidence for clinically relevant pulmonary arterial filling defect.
--- NOTE | 2024-03-01 22:27 | HMH.EDGENADL ---
Discharge Plan Disposition Patient Disposition: Home, Self-Care Prescriptions Prescriptions: No Action ciprofloxacin HCl [Cipro] 500 mg tablet 500 mg PO BID 10 Days Qty: 20 0RF mupirocin 2 % ointment 1 applic topical TID 7 Days Qty: 1 0RF sulfamethoxazole-trimethoprim [Bactrim DS] 800-160 mg tablet 1 tab PO DAILY 5 Days Qty: 5 0RF Referrals Follow up/Referrals: Mandeep Mccain MD [Staff Physician] - See instructions Provider,MD Katerina [Primary Care Provider] - See instructions Activity Restrictions/Add. Instructions Additional Instructions/Restrictions: Please follow-up with your primary care provider and with cardiology regarding your Holter monitor. Please return to the emergency department if you develop any new or worsening symptoms or become concerned for your health. Clinical Impressions Clinical Impression: Tachycardia Print Language Print Language: Croatian Discharge ED Provider: Lew Russo General Adult HPI <Lew Russo MD - Last Filed: 03/01/24 23:00> General Chief complaint: Recheck/Abnormal Lab/Rx Stated complaint: abnormal heatbeats ,tingling in body Time Seen by Provider: 03/01/24 22:00 Mode of Arrival: Wheelchair Source of Information: Patient and Parent(s) Limitations: No Limitations Description of Symptoms (Recalled from ER Triage Doc. by RN): pt reports numbness and tingling x2 days without improvement. pt also reports his heart rate has been elevated History of Present Illness HPI narrative: Please note that above description of symptoms, in this electronic medical record under categorization of recalled from ER triage doctor by RN are reflective of an initial nursing assessment, however, is not reflective of my full history and physical exam that was personally taken and clarified. Consequentially, this preceding description of symptoms, which may include the patient's categorized chief complaint in the EMR, do not reflect my personal clinical impression, and the ultimate description of history of present illness and patient stated complaints should be deferred to this section of the note. Unless stated otherwise or congruent with this section of the note, additional signs, symptoms, or incongruence should be interpreted as inaccurate with my clinical impression. Related Data Previous Rx's ?Medication ?Instructions ?Recorded ciprofloxacin HCl 500 mg tablet 500 mg PO BID 10 days #20 tabs 02/02/22 (Cipro) mupirocin 2 % topical ointment 1 applic topical TID 7 days #1 g 02/02/22 sulfamethoxazole 800 1 tab PO DAILY 5 days #5 tabs 12/04/23 mg-trimethoprim 160 mg tablet (Bactrim DS) Allergies Allergy/AdvReac Type Severity Reaction Status Date / Time INGREDIENT: NO KNOWN - NO Allergy Unknown Uncoded 04/30/17 15:25 KNOWN DRUG ALLERGY PFSH <Lew Russo MD - Last Filed: 03/01/24 23:00> [facility] Disclaimer: The information contained in this section may have been updated after the patient was seen, as this information can be updated by other users. Social History (Updated 02/04/22 @ 21:40 by Good Pena APRN) Smoking Status: Current every day smoker alcohol intake: never current occupational status: unemployed Travel in the last 8 weeks: None <Lew Russo MD - Last Filed: 03/01/24 23:00> ROS Obtained: Yes All systems reviewed & no additional complaints except as documented Physical Exam <Lew Russo MD - Last Filed: 03/01/24 23:00> General General appearance: alert and in no apparent distress Head Head exam: atraumatic and normocephalic Eye Eye exam: Present normal appearance, PERRL and EOMI Neck Neck exam: Present normal inspection, full ROM and trachea midline Chest Chest inspection: Present normal inspection Respiratory Respiratory exam: Present normal lung sounds bilaterally; Absent respiratory distress, wheezes, stridor, accessory muscle use or prolonged expiratory phase Cardiovascular Cardiovascular exam: Present normal rhythm, tachycardia and other (Pulses equal symmetric in upper and lower extremities) Abdominal Exam Abdominal exam: Present soft; Absent distention, tenderness, guarding, rebound, rigidity or pulsatile mass Extremities Exam Extremities exam: Present edema and other (Per MDM) Back Exam Back exam: Present tenderness (At gluteal cleft overlying bony prominence with significant tenderness. Stage II ulcer) Neurological Exam Neurological exam: Present alert, oriented X3, CN II-XII intact and normal gait; Absent motor sensory deficit Skin Skin exam: Present warm and dry; Absent diaphoresis or erythema Medical Decision Making <Lew Russo MD - Last Filed: 03/01/24 23:00> Medical Records Medical records reviewed: Yes I reviewed the patient's medical records. Screening: Per USPSTF and CDC recommendations, given the prevalence of disease in our region, it is our hospital?s policy to screen for HIV and viral Hepatitis for all patients aged 18 and over and those with ongoing risk factors. Josh Inquiry Pt receiving controlled substance: No Josh was queried for this patient: No Vital Signs: 03/01/24 22:05 03/01/24 22:09 03/01/24 23:30 Temperature 98.2 F 98.2 F Temperature Source Oral Oral Pulse Rate 93 H Pulse Rate [Right] 120 H 120 H Respiratory Rate 11 L 11 L 16 Blood Pressure 123/86 Blood Pressure [Right Arm] 124/84 124/84 Blood Pressure Mean [Right Arm] 97 97 02 Sat by Pulse Oximetry 99 99 98 Oxygen Delivery Method Room Air 03/02/24 00:00 03/02/24 01:21 Temperature 97.8 F Temperature Source Oral Pulse Rate 90 95 H Pulse Rate [Right] Respiratory Rate 16 17 Blood Pressure 138/83 118/62 Blood Pressure [Right Arm] Blood Pressure Mean [Right Arm] 02 Sat by Pulse Oximetry 97 Oxygen Delivery Method Room Air Room Air Lab Data Lab Results 03/01/24 22:05: WBC 5.4, RBC 4.91, Hgb 15.5, Hct 43.8, MCV 89.2, MCH 31.5 H, MCHC 35.3, RDW 13.6, Plt Count 224, MPV 9.8, Neut % (Auto) 51.9, Lymph % (Auto) 35.3, [place] % (Auto) 9.3, Eos % (Auto) 2.2, Baso % (Auto) 1.3, Neut # (Auto) 2.8, Lymph # (Auto) 1.9, [place] # (Auto) 0.5, Eos # (Auto) 0.1, Baso # (Auto) 0.1, ESR 6, PT 9.7 L, INR 0.85 L, APTT 25.5, Sodium 137, Potassium 4.4, Chloride 100, Carbon Dioxide 27, Anion Gap 14.4, BUN 21 H, Creatinine 0.70, Estimated Creat Clear 186, Estimated GFR 126, Est GFR ( Amer) 153, Glucose 288 H, Calcium 10.2, Magnesium 1.9, Total Bilirubin 0.5, AST 28, ALT 31, Alkaline Phosphatase 117, Troponin I < 0.01, C-Reactive Protein 1.6, NT-Pro-B Natriuret Pep < 20.0, Total Protein 7.9, Albumin 4.9, Globulin 3.0, Albumin/Globulin Ratio 1.6, Procalcitonin 0.038, TSH 1.80, Thyroxine (T4) 7.5, HIV 1&2 Antibody Rapid Nonreactive 03/01/24 22:27: VBG pH 7.40, VBG pCO2 40.8, VBG pO2 107.6 H, VBG HCO3 24.8, VBG Total CO2 26.0, VBG O2 Saturation 98.0 H, VBG Base Excess 0.0, VBG Lactic Acid 1.7 03/02/24 00:14: Urine Color Yellow, Urine Appearance Clear, Urine pH 6.5, Ur Specific [place] 1.010, Urine Protein Negative, Urine Glucose (UA) 2+, Urine Ketones Negative, Urine Blood Negative, Urine Nitrate Negative, Urine Bilirubin Negative, Urine Urobilinogen 0.2, Ur Leukocyte Esterase Negative, Urine RBC None, Urine WBC None, Ur Squamous Epith Cells Occasional, Urine Bacteria None, Urine Opiates Screen Negative, Urine Methadone Screen Negative, Ur Barbituates Screen Negative, Ur Phencyclidine Scrn Negative, Ur Amphetamines Screen Negative, U Benzodiazepines Scrn Negative, Urine Cocaine Screen Negative, U Marijuana (THC) Screen Negative 03/01/24 22:05 03/01/24 22:05 Orders (Tests/Meds): ED MEDICATIONS Discontinued Medications Generic Name Dose Route Start Last Admin Trade Name Vicky PRN Reason Stop Dose Admin Lactated Ringer's 1,000 mls @ 999 mls/hr 03/01/24 22:25 03/01/24 22:30 Lactated Ringer's 1000 Ml Bag IV 03/01/24 23:25 999 mls/hr .Q1H1M ONE Administration Iopamidol 70 ml 03/01/24 23:08 03/01/24 23:09 Iopamidol-370 (76%);100ml Bottle IV 03/01/24 23:09 70 ml ONCE ONE Administration Sodium Chloride 50 ml 03/01/24 23:08 03/01/24 23:09 0.9 % Sodium Chloride 50 Ml Vial IV 03/01/24 23:09 50 ml ONCE ONE Administration Sodium Chloride 10 ml 03/01/24 23:08 03/01/24 23:09 Sodium Chloride 0.9% 10ml Syr (Rad Only) IV 03/31/24 23:07 10 ml NEEDED PRN Administration Maintain IV Site ORDERS Category Date Time Status CT angio chest PE protocol Stat Cat Scan 03/01/24 22:25 Completed POCUS Point of Care (ER Only) Stat Exams 03/01/24 22:26 Completed CRP [C-Reactive Protein] Stat Lab 03/01/24 22:05 Completed Complete Blood Count Auto Diff Stat Lab 03/01/24 22:05 Completed Comprehensive Metabolic Panel Stat Lab 03/01/24 22:05 Completed ESR [Erythrocyte Sedimentation Rate] Stat Lab 03/01/24 22:05 Completed HIV (1&2) Antibody Rapid Stat Lab 03/01/24 22:05 Completed Hep C Ab with Reflex to RNA Stat Lab 03/01/24 22:05 Received Magnesium Stat Lab 03/01/24 22:05 Completed NT Pro Brain Natriuretic Pep. Stat Lab 03/01/24 22:05 Completed PT INR [Prothrombin Time INR] Stat Lab 03/01/24 22:05 Completed PTT [Activated Partial Thrombo Time] Stat Lab 03/01/24 22:05 Completed Procalcitonin Stat Lab 03/01/24 22:05 Completed T4 (Thyroxine) Stat Lab 03/01/24 22:05 Completed TSH [Thyroid Stimulating Hormone] Stat Lab 03/01/24 22:05 Completed Troponin I Stat Lab 03/01/24 22:05 Completed UA [Urinalysis and Microscopic] Stat Lab 03/02/24 00:14 Completed UDS [Drug Screen,Urine] Stat Lab 03/01/24 22:29 Completed Blood Culture Stat Micro 03/01/24 23:33 Received Venous Blood Gas Stat RT 03/01/24 22:27 Completed Holter Monitor Req by Leonard/ Stat Y 03/02/24 01:17 Ordered Medical Decision Narrative: 38-year-old male with history of polysubstance abuse including IV methamphetamines and heroin, endocarditis, sepsis, hypertension, hyperlipidemia, diabetes presenting with tachycardia. Patient states that his heart rate has been progressively quickening over the last 2 days. Last time he used illicit drugs was about 2 weeks prior to this when he used methamphetamines. States he has been trying to be clean. Has been taking all his medications as prescribed. Denies fevers, chills, nausea, vomiting, cough,, hemoptysis, neurologic deficits. He does state that his hands and feet seem more swollen than usual. He also has a sore at his tailbone that has been new over the past few days. It should be noted that patient still is using intravenous drugs which is likely complicating care. History was obtained via conversation with patient. On arrival, patient hemodynamically stable, alert, oriented x4, appropriate, GCS 15, moving all extremities spontaneously, pupils equal and reactive to light. Full physical exam performed and significant for chronically ill-appearing male who is in no acute distress. He is tachycardic with normal rhythm. No obvious murmurs gallops or rubs. Patient pulses are equal in upper and lower extremities. He has swelling of bilateral hands, no swelling of his feet. He has 1 tender lesion on the palm of his left hand concerning for a possible [place] lesion. No other sequela of endocarditis including splinter hemorrhages or Weber spots. Abdomen soft, nontender, nondistended. No other rash or abnormality on exam lungs are clear to auscultation anterior and posteriorly bilaterally. Differential includes intoxication, withdrawal, metabolic, endocrinologic, PE, pneumothorax, pneumonia, sepsis, among others. Patient placed on continuous cardiac monitoring and continuous pulse ox with initial blood pressure 124/84, heart rate 120, saturation 99% on room air. Independent interpretation of EKG shows sinus tachycardia [address] or T wave changes concerning for acute ischemia. IL 129, QRS 88, QTc 384. No evidence of right heart strain. Patient was given 1 L fluid bolus for symptomatic management and correction of underlying abnormalities. Workup independently interpreted and significant for nonactionable CBC or chemistry. BNP negative. CRP negative. Bedside [id number] ultrasound performed. No evidence of endocarditis, vegetation, pericardial effusion, right heart strain, etc. On apical four-chamber, no evidence of valvular regurgitation.On reevaluation, patient still resting comfortably, tachycardia getting much better after fluids. Prior to CT PE, care handed off to oncoming physician. Frontload Driver disclaimer Much of this encounter note is an electronic manager hematology spoken language to printed text. Electronic manager hematology of the spoken language may permit errors. Although I have reviewed the note, some errors may still exist. <Tai Mcdonnell MD - Last Filed: 03/02/24 02:12> Vital Signs: 03/01/24 22:05 03/01/24 22:09 03/01/24 23:30 Temperature 98.2 F 98.2 F Temperature Source Oral Oral Pulse Rate 93 H Pulse Rate [Right] 120 H 120 H Respiratory Rate 11 L 11 L 16 Blood Pressure 123/86 Blood Pressure [Right Arm] 124/84 124/84 Blood Pressure Mean [Right Arm] 97 97 02 Sat by Pulse Oximetry 99 99 98 Oxygen Delivery Method Room Air 03/02/24 00:00 03/02/24 01:21 Temperature 97.8 F Temperature Source Oral Pulse Rate 90 95 H Pulse Rate [Right] Respiratory Rate 16 17 Blood Pressure 138/83 118/62 Blood Pressure [Right Arm] Blood Pressure Mean [Right Arm] 02 Sat by Pulse Oximetry 97 Oxygen Delivery Method Room Air Room Air Lab Data Lab Results 03/01/24 22:05: WBC 5.4, RBC 4.91, Hgb 15.5, Hct 43.8, MCV 89.2, MCH 31.5 H, MCHC 35.3, RDW 13.6, Plt Count 224, MPV 9.8, Neut % (Auto) 51.9, Lymph % (Auto) 35.3, [place] % (Auto) 9.3, Eos % (Auto) 2.2, Baso % (Auto) 1.3, Neut # (Auto) 2.8, Lymph # (Auto) 1.9, [place] # (Auto) 0.5, Eos # (Auto) 0.1, Baso # (Auto) 0.1, ESR 6, PT 9.7 L, INR 0.85 L, APTT 25.5, Sodium 137, Potassium 4.4, Chloride 100, Carbon Dioxide 27, Anion Gap 14.4, BUN 21 H, Creatinine 0.70, Estimated Creat Clear 186, Estimated GFR 126, Est GFR ( Amer) 153, Glucose 288 H, Calcium 10.2, Magnesium 1.9, Total Bilirubin 0.5, AST 28, ALT 31, Alkaline Phosphatase 117, Troponin I < 0.01, C-Reactive Protein 1.6, NT-Pro-B Natriuret Pep < 20.0, Total Protein 7.9, Albumin 4.9, Globulin 3.0, Albumin/Globulin Ratio 1.6, Procalcitonin 0.038, TSH 1.80, Thyroxine (T4) 7.5, HIV 1&2 Antibody Rapid Nonreactive 03/01/24 22:27: VBG pH 7.40, VBG pCO2 40.8, VBG pO2 107.6 H, VBG HCO3 24.8, VBG Total CO2 26.0, VBG O2 Saturation 98.0 H, VBG Base Excess 0.0, VBG Lactic Acid 1.7 03/02/24 00:14: Urine Color Yellow, Urine Appearance Clear, Urine pH 6.5, Ur Specific [place] 1.010, Urine Protein Negative, Urine Glucose (UA) 2+, Urine Ketones Negative, Urine Blood Negative, Urine Nitrate Negative, Urine Bilirubin Negative, Urine Urobilinogen 0.2, Ur Leukocyte Esterase Negative, Urine RBC None, Urine WBC None, Ur Squamous Epith Cells Occasional, Urine Bacteria None, Urine Opiates Screen Negative, Urine Methadone Screen Negative, Ur Barbituates Screen Negative, Ur Phencyclidine Scrn Negative, Ur Amphetamines Screen Negative, U Benzodiazepines Scrn Negative, Urine Cocaine Screen Negative, U Marijuana (THC) Screen Negative Orders (Tests/Meds): ED MEDICATIONS Discontinued Medications Generic Name Dose Route Start Last Admin Trade Name Freq PRN Reason Stop Dose Admin Lactated Ringer's 1,000 mls @ 999 mls/hr 03/01/24 22:25 03/01/24 22:30 Lactated Ringer's 1000 Ml Bag IV 03/01/24 23:25 999 mls/hr .Q1H1M ONE Administration Iopamidol 70 ml 03/01/24 23:08 03/01/24 23:09 Iopamidol-370 (76%);100ml Bottle IV 03/01/24 23:09 70 ml ONCE ONE Administration Sodium Chloride 50 ml 03/01/24 23:08 03/01/24 23:09 0.9 % Sodium Chloride 50 Ml Vial IV 03/01/24 23:09 50 ml ONCE ONE Administration Sodium Chloride 10 ml 03/01/24 23:08 03/01/24 23:09 Sodium Chloride 0.9% 10ml Syr (Rad Only) IV 03/31/24 23:07 10 ml NEEDED PRN Administration Maintain IV Site ORDERS Category Date Time Status CT angio chest PE protocol Stat Cat Scan 03/01/24 22:25 Completed POCUS Point of Care (ER Only) Stat Exams 03/01/24 22:26 Completed CRP [C-Reactive Protein] Stat Lab 03/01/24 22:05 Completed Complete Blood Count Auto Diff Stat Lab 03/01/24 22:05 Completed Comprehensive Metabolic Panel Stat Lab 03/01/24 22:05 Completed ESR [Erythrocyte Sedimentation Rate] Stat Lab 03/01/24 22:05 Completed HIV (1&2) Antibody Rapid Stat Lab 03/01/24 22:05 Completed Hep C Ab with Reflex to RNA Stat Lab 03/01/24 22:05 Received Magnesium Stat Lab 03/01/24 22:05 Completed NT Pro Brain Natriuretic Pep. Stat Lab 03/01/24 22:05 Completed PT INR [Prothrombin Time INR] Stat Lab 03/01/24 22:05 Completed PTT [Activated Partial Thrombo Time] Stat Lab 03/01/24 22:05 Completed Procalcitonin Stat Lab 03/01/24 22:05 Completed T4 (Thyroxine) Stat Lab 03/01/24 22:05 Completed TSH [Thyroid Stimulating Hormone] Stat Lab 03/01/24 22:05 Completed Troponin I Stat Lab 03/01/24 22:05 Completed UA [Urinalysis and Microscopic] Stat Lab 03/02/24 00:14 Completed UDS [Drug Screen,Urine] Stat Lab 03/01/24 22:29 Completed Blood Culture Stat Micro 03/01/24 23:33 Received Venous Blood Gas Stat RT 03/01/24 22:27 Completed Holter Monitor Req by Leonard/ Stat Y 03/02/24 01:17 Ordered Medical Decision Narrative: 38-year-old male with history of polysubstance abuse including IV methamphetamines and heroin, endocarditis, sepsis, hypertension, hyperlipidemia, diabetes presenting with tachycardia. Patient states that his heart rate has been progressively quickening over the last 2 days. Last time he used illicit drugs was about 2 weeks prior to this when he used methamphetamines. States he has been trying to be clean. Has been taking all his medications as prescribed. Denies fevers, chills, nausea, vomiting, cough,, hemoptysis, neurologic deficits. He does state that his hands and feet seem more swollen than usual. He also has a sore at his tailbone that has been new over the past few days. It should be noted that patient still is using intravenous drugs which is likely complicating care. History was obtained via conversation with patient. On arrival, patient hemodynamically stable, alert, oriented x4, appropriate, GCS 15, moving all extremities spontaneously, pupils equal and reactive to light. Full physical exam performed and significant for chronically ill-appearing male who is in no acute distress. He is tachycardic with normal rhythm. No obvious murmurs gallops or rubs. Patient pulses are equal in upper and lower extremities. He has swelling of bilateral hands, no swelling of his feet. He has 1 tender lesion on the palm of his left hand concerning for a possible [place] lesion. No other sequela of endocarditis including splinter hemorrhages or Weber spots. Abdomen soft, nontender, nondistended. No other rash or abnormality on exam lungs are clear to auscultation anterior and posteriorly bilaterally. Differential includes intoxication, withdrawal, metabolic, endocrinologic, PE, pneumothorax, pneumonia, sepsis, among others. Patient placed on continuous cardiac monitoring and continuous pulse ox with initial blood pressure 124/84, heart rate 120, saturation 99% on room air. Independent interpretation of EKG shows sinus tachycardia [address] or T wave changes concerning for acute ischemia. [place] 129, QRS 88, QTc 384. No evidence of right heart strain. Patient was given 1 L fluid bolus for symptomatic management and correction of underlying abnormalities. Workup independently interpreted and significant for nonactionable CBC or chemistry. BNP negative. CRP negative. Bedside [id number] ultrasound performed. No evidence of endocarditis, vegetation, pericardial effusion, right heart strain, etc. On apical four-chamber, no evidence of valvular regurgitation.On reevaluation, patient still resting comfortably, tachycardia getting much better after fluids. Prior to CT PE, care handed off to oncoming physician. Frontload Driver disclaimer Much of this encounter note is an electronic manager hematology spoken language to printed text. Electronic manager hematology of the spoken language may permit errors. Although I have reviewed the note, some errors may still exist. Kecia MOORE: I assumed care of the patient at the time of handoff from the prior provider. On reassessment patient is sleeping comfortably, heart rate in the 90s while sleeping. Upon awakening his heart rates between 100-110. He reports no current chest pain or shortness of breath. CT imaging was independently interpreted by me and shows no evidence of pulmonary emboli, pneumonia, volume overloaded etc. I had extensive discussion with patient regarding his presentation. We will trial a Holter monitor and have patient follow-up with cardiology. Return precautions given Procedures <Lew Russo MD - Last Filed: 03/01/24 23:00> Limited Ultrasound Indication:: Limited cardiac ultrasound Indication: Tachycardia Identified cardiac views: -Cardiac parasternal long axis -Cardiac parasternal short axis -Cardiac apical four-chamber Findings: -Cardiac activity present -Gross wall motion normal -Pericardial effusion absent -Right heart strain absent Impression: -Normal cardiac ultrasound Images were saved to permanent archive The study was technically adequate CPT: 57551 This study was performed by me, and I personally interpreted all images/videos. Based on my clinical judgement, these images were adequate and did not necessitate further imaging Critical Care <Lew Russo MD - Last Filed: 03/01/24 23:00> Critical Care Time Critical Care Time: No
[2024-03-01] MEDS: LACTATED RINGERS 1000ML 1,000 ML 999 ML IV (22:30)
[2024-03-01 22:33] LABS: Basophils # 0.1 K/mm3 (0-0.2); Basophils % 1.3 % (0.1-2.0); Eosinophils # 0.1 K/mm3 (0.0-0.4); Eosinophils % 2.2 % (0.1-12.0); Hematocrit 43.8 % (42.0-52.0); Hemoglobin 15.5 g/dL (14.1-18.0); Lymphocytes # 1.9 K/mm3 (0.7-4.5); Lymphocytes % 35.3 % (10-50); Mean Corpuscular HGB Conc 35.3 g/dL (31.8-35.4); Mean Corpuscular Hemoglobin 31.5 pg (27.0-31.2); Mean Corpuscular Volume 89.2 fl (80-94); Mean Platelet Volume 9.8 fl (7.4-10.4); Monocytes # 0.5 K/mm3 (0.1-1.0); Monocytes % 9.3 % (1.7-9.3); Neutrophils # 2.8 K/mm3 (1.8-7.8); Neutrophils % 51.9 % (37.0-80.0); Platelet Count 224 K/mm3 (142-424); Red Blood Count 4.91 M/mm3 (4.60-6.20); Red Cell Distribution Width 13.6 % (11.5-17.5); White Blood Count 5.4 K/mm3 (4.8-10.8)
[2024-03-01 22:35] LABS: Albumin Level 4.9 g/dl (3.5-5.0); Chloride 100 mmol/L (98-107); Potassium 4.4 mmoL/L (3.5-5.1)
[2024-03-01 22:37] LABS: Blood Urea Nitrogen 21 mg/dl (9-20); Creatinine Clearance Estimated 186 mL/min (50-200); Estimated Glomerular Filt Rate 126 ml/min (>60); GFR (African American) 153 ML/MIN (>60)
[2024-03-01 22:38] LABS: Alanine Aminotransferase 31 U/L (12-78); Albumin/Globulin Ratio 1.6 (1.1-1.8); Alkaline Phosphatase 117 U/L (38-126); Aspartate Amino Transferase 28 U/L (17-59); Bilirubin,Total 0.5 mg/dl (0.2-1.3); Calcium 10.2 mg/dl (8.4-10.2); Carbon Dioxide 27 mmol/L (22.0-30.0); Glucose 288 mg/dl (74-100); Magnesium 1.9 mg/dl (1.6-2.3); Total Protein,Serum 7.9 g/dl (6.3-8.2)
[2024-03-01 22:39] LABS: Activated Partial Thrombo Time 25.5 seconds (22.8-30.6); INR 0.85 (0.9-1.1); Prothrombin Time 9.7 seconds (10.1-12.5)
[2024-03-01 22:42] LABS: Anion Gap 14.4 mEq/L (5-15); Sodium 137 mmol/L (136-145)
[2024-03-01 22:43] LABS: C-Reactive Protein 1.6 mg/L (0-4)
[2024-03-01 22:50] LABS: NT Pro Brain Natriuretic Pep. < 20.0 pg/mL (0-125)
[2024-03-01 22:57] LABS: T4 (Thyroxine) 7.5 ug/dl (5.53-11.0)
[2024-03-01 22:59] LABS: Troponin I < 0.01 ng/ml (0.00-0.034)
[2024-03-01 23:04] LABS: Lactate Venous 1.7 mmol/L (0.4-2.0); VBG HCO3 24.8 mmol/L (23-30); VBG PCO2 40.8 mmol/L (35-51); VBG PO2 107.6 mmol/L (28-40)
[2024-03-01 23:09] LABS: Procalcitonin 0.038 ng/mL (0.0-2.0)
[2024-03-01] MEDS: 0.9 % SODIUM CHLORIDE 50 ML VIAL IV (23:09)
[2024-03-01] MEDS: IOPAMIDOL-370 (76%);100ML BOTTLE 70 ML IV (23:09)
[2024-03-01] MEDS: SODIUM CHLORIDE 0.9% 10ML SYR (RAD ONLY) 10 ML IV (23:09)
[2024-03-01 23:27] LABS: HIV (1&2) Antibody Rapid NONREACTIVE (NONREACTIVE)
[2024-03-01 23:30] VITALS: BP 123/86; PULSE 93; RESP 16; O2SAT 98
[2024-03-02] VITALS: BP 138/83; PULSE 90; RESP 16; O2SAT 97
[2024-03-02 00:16] LABS: Microscopic, Urine URINE MICROSCOPIC (MICROSCOPIC)
[2024-03-02 00:19] LABS: Appearance,Urine CLEAR (Clear); Bilirubin,Urine Negative (Negative); Blood, Urine Negative (Negative); Color,Urine YELLOW (Yellow); Glucose,Urine (UA) 2+ (Negative); Ketones,Urine Negative (Negative); Leukocyte Esterase,Urine Negative (Negative); Nitrate,Urine Negative (Negative); PH,Urine 6.5 (5.0-8.5); Protein,Urine Negative (Negative); Urobilinogen,Urine 0.2 EU/dl (0.2)
[2024-03-02 00:29] LABS: Amphetamine/Metha Screen,Urine Negative ng/ml (<1000)
[2024-03-02 00:30] LABS: Barbiturates Screen,Urine Negative ng/ml (<200); Benzodiazepines Screen,Urine Negative ng/ml (<200)
[2024-03-02 00:31] LABS: Cannabinoid Screen,Urine Negative ng/ml (<50)
[2024-03-02 00:32] LABS: Cocaine Screen,Urine Negative ng/ml (<300); Methadone Screen,Urine Negative ng/ml (<300)
[2024-03-02 00:33] LABS: Opiate Screen,Urine Negative ng/ml (<300); Phencyclidine Screen,Urine Negative ng/ml (<25); Squamous Epithelial Cell,Urine Occasional #/hpf (0-5)
[2024-03-02 00:53] LABS: Erythrocyte Sedimentation Rate 6 mm/hr (0-15)
[2024-03-02 01:21] VITALS: BP 118/62; PULSE 95; RESP 17; TEMP 36.6; O2SAT 97
[2024-03-04 21:17] LABS: HCV Ab Reactive (Non Reactive)
== END 2024-03-02 01:47 | disposition home or self-care (01) ==
PROVIDERS: Emergency Provider Emergency Medicine
DX: R00.0 Tachycardia, unspecified (principal); R20.2 Paresthesia of skin
CPT/HCPCS: 71275; 80053; 80307; 81001; 82803; 83735; 83880; 84145; 84436; 84443; 84484; 85025; 85610; 85651; 85730; 86140; 86803; 87040; 87389; 93005; 93225; 93226; 93227; 96360; 99285; J7120; Q9967

== ENCOUNTER 2024-06-08 12:49 | Outpatient (CLI) | payer MEDICAID, SELFPAY ==
[2024-06-08 13:43] LABS: POC Glucose,Bedside 146 (70-110)
[2024-06-08 14:53] LABS: Albumin Level 4.5 g/dl (3.5-5.0); Chloride 100 mmol/L (98-107); Potassium 4.2 mmoL/L (3.5-5.1); Sodium 138 mmol/L (136-145)
[2024-06-08 14:56] LABS: Alanine Aminotransferase 46 U/L (12-78); Alkaline Phosphatase 91 U/L (38-126); Anion Gap 14.2 mEq/L (5-15); Aspartate Amino Transferase 27 U/L (17-59); Bilirubin,Direct 0.1 mg/dl (0.0-0.4); Bilirubin,Indirect 0.2 mg/dL (0.0-0.9); Bilirubin,Total 0.3 mg/dl (0.2-1.3); Bilirubin,Unconjugated 0.3 mg/dL (0.0-1.1); Blood Urea Nitrogen 16 mg/dl (9-20); Calcium 9.6 mg/dl (8.4-10.2); Carbon Dioxide 28 mmol/L (22.0-30.0); Estimated Glomerular Filt Rate 126 ml/min (>60); GFR (African American) 152 ML/MIN (>60); Glucose 165 mg/dl (74-100); Total Protein,Serum 6.7 g/dl (6.3-8.2)
[2024-06-08 15:19] LABS: HIV Combo NEGATIVE (Negative)
[2024-06-08 16:05] LABS: Barbiturates Screen,Urine Negative ng/ml (<200)
[2024-06-08 16:06] LABS: Benzodiazepines Screen,Urine Negative ng/ml (<200)
[2024-06-08 16:08] LABS: Cannabinoid Screen,Urine Positive ng/ml (<50)
[2024-06-08 16:10] LABS: Methadone Screen,Urine Negative ng/ml (<300); Opiate Screen,Urine Negative ng/ml (<300)
[2024-06-08 16:11] LABS: Phencyclidine Screen,Urine Negative ng/ml (<25)
[2024-06-08 16:22] LABS: Cocaine Screen,Urine Negative ng/ml (<300)
--- NOTE | 2024-06-08 21:30 | P.EN_ITS ---
Rapid response called in the lab today. Upon arrival, patient was martin and diaphoretic. Was alert and oriented but appeared quite fatigued. Was on monitor, blood pressure soft with systolics in the 90s. Blood sugar 146. Patient came in for lab draw, had almost a dozen tubes of blood drawn. [place] nauseous but those symptoms have improved. States he started to feel hot and flushed, became diaphoretic and almost passed out. Was drinking water and stable on room air at time of evaluation. Presentation consistent with vasovagal syncope/near syncope. States he had a similar episode when donating plasma. Monitored for about 20 minutes with improvement in vitals. Systolic improved to 1 teens. Patient given an orange juice. States he is on medications for diabetes and blood pressure. Diabetes meds or oral meds. Did not eat breakfast today. Recommended we not draw any more labs today as he had a few more tests to obtain blood for. Recommend returning to the lab tomorrow but holding on taking his meds until after his labs and not skipping breakfast tomorrow. Patient improved and was able to ambulate. Not dizzy. Remained conscious and alert and oriented x 4 throughout the entire episode upon my arrival.
[2024-06-09 05:17] LABS: Hep A Ab, Total Positive (Negative)
[2024-06-09 14:04] LABS: RPR W/RFX Titers Nonreactive (Nonreactive)
[2024-06-11 18:14] LABS: HBsAg Screen Negative (Negative); HCV Ab Reactive (Non Reactive); Hep A Ab, IGM Negative (Negative); Hep B Core Ab, IgM Negative (Negative)
[2024-06-15 20:34] LABS: Amphetamine Positive (.); Amphetamine (GC/MS) >3000 ng/mL (Cutoff=500); Amphetamines Positive (.); Methamphetamine Positive (.); Methamphetamine (GC/MS) >3000 ng/mL (Cutoff=500)
== END 2024-06-08 23:59 | disposition home or self-care (01) ==
PROVIDERS: PCP Family Medicine; Visit Provider Nurse Practitioner Family
DX: F19.99 Other psychoactive substance use, unspecified with unspecified psychoactive substance-induced disorder (principal); Z20.2 Contact with and (suspected) exposure to infections with a predominantly sexual mode of transmission; Z20.5 Contact with and (suspected) exposure to viral hepatitis; Z91.89 Other specified personal risk factors, not elsewhere classified; Z01.89 Encounter for other specified special examinations
CPT/HCPCS: 36415; 80048; 80074; 80076; 80307; 80324; 82962; 86592; 86706; 86708; 87389; 87522; G0480

== ENCOUNTER 2024-06-09 13:06 | Outpatient (CLI) | payer MEDICAID, SELFPAY ==
[2024-06-09 13:32] LABS: Basophils % 0.5 % (0.1-2.0); Eosinophils # 0.1 K/mm3 (0.0-0.4); Eosinophils % 2.5 % (0.1-12.0); Hematocrit 39.7 % (42.0-52.0); Hemoglobin 13.5 g/dL (14.1-18.0); Lymphocytes # 2.4 K/mm3 (0.7-4.5); Lymphocytes % 42.5 % (10-50); Mean Corpuscular Hemoglobin 29.4 pg (27.0-31.2); Mean Corpuscular Volume 86.5 fl (80-94); Mean Platelet Volume 9.6 fl (7.4-10.4); Monocytes # 0.5 K/mm3 (0.1-1.0); Monocytes % 8.1 % (1.7-9.3); Neutrophils # 2.5 K/mm3 (1.8-7.8); Platelet Count 205 K/mm3 (142-424); Red Blood Count 4.59 M/mm3 (4.60-6.20); Red Cell Distribution Width 11.8 % (11.5-17.5); White Blood Count 5.5 K/mm3 (4.8-10.8)
[2024-06-11 20:08] LABS: QuantiFERON-TB Gold Plus Negative (Negative)
== END 2024-06-09 23:59 | disposition home or self-care (01) ==
LOC: LAB 13:07
PROVIDERS: PCP Family Medicine; Visit Provider Nurse Practitioner Family
DX: F19.99 Other psychoactive substance use, unspecified with unspecified psychoactive substance-induced disorder (principal); Z20.2 Contact with and (suspected) exposure to infections with a predominantly sexual mode of transmission; Z20.5 Contact with and (suspected) exposure to viral hepatitis; Z91.89 Other specified personal risk factors, not elsewhere classified; Z01.89 Encounter for other specified special examinations
CPT/HCPCS: 36415; 85025; 86480